=== PATIENT | male | born 1950 | race Caucasian/White ===

== ENCOUNTER 2018-08-23 20:20 | Inpatient (IN) | payer MEDICARE ==
[~2018-08-23] VITALS: Ht 180.3 cm; Wt 88.6 kg
--- NOTE | ~2018-08-23 | MORECARE ---
CASE MANAGEMENT DISCHARGE SUMMARY PATIENT: TERESO VILLARREAL UNIT: [id number] ADM DATE: 08/23/18 AGE: 68 : 50 SEX: M ROOM/BED: D.2112 AUTHOR: MERCEDEZ,DOC PHYSICIAN: REFERRING PHYSICIAN: VOLODYMYR CESPEDES MD DATE OF SERVICE: 08/26/18 Discharge Plan Patient Name: TERESO VILLARREAL Facility: [facility]:[place] : 1950 Planned Disposition: Home or Self Care Anticipated Discharge Date: 08/28/18 Discharge Date: Expected LOS: 5 Initial Reviewer: [email or web address] Initial Review Date: 08/26/2018 Generated: 08/26/18 9:45 am Comments DCP- Discharge Planning Updated by [email or web address]: Ekta Mooney on 08/26/18 7:[address] Patient Name: TERESO VILLARREAL Admission Status: ER Accout number: [id number] Admission Date: 08-23-2018 : 1950 Admission Diagnosis:SHORTNESS OF BREATH Attending: VOLODYMYR CESPEDES Current LOS: 3 Anticipated DC Date: 08-28-2018 Planned Disposition: Home or Self Care Primary Insurance: MEDICARE A & B Discharge Planning Comments: CM MET WITH PATIENT REGARDING D/C NEEDS AND PLANS. PATIENT STATED HE LIVES ALONE AND HIS DAUGHTER (EKTA STEVE) WILL DRIVE HIM HOME AT DISCHARGE. PATIENT STATED HE HAS ONE STEP TO ENTER HOME AND NO STAIRS INSIDE. PATIENT STATED HE IS INDEPENDENT WITH HIS CARE BUT HIS DAUGHTER HELPS HIM WITH HIS MEDICATION. PATIENT HAS A WALKER, BUILT IN SHOWER CHAIR, AND GLUCOMETER AT HOME. PATIENTS PCP IS DR. GUALLPA AND USES [facility] ON [facility]. PATIENT REFUSED HOME HEALTH AT THIS TIME. [facility] WAS SERVED TO PATIENT. CM WILL CONTINUE TO FOLLOW PATIENT WITH D/C NEEDS AND PLANS. [facility]CP [facility] EKTA STEVE (DAUGHTER) [phone] Plasma Processing Centrifuge Operator: Ekta Mooney DCPIA - Discharge Planning Initial Assessment Updated by [email or web address]: Ekta Mooney on 08/26/18 8:33 am * Is the patient Alert and Oriented? Yes * How many steps to enter\exit or inside your home? * PCP DR. GUALLPA * Pharmacy [facility] [address] * Preadmission Environment Home Alone * ADLs Partial Dependent * Partial ADLs (Assistance needed) Medication Management * Equipment Glucometer Other Walker * Other Equipment BUILT IN SOWER CHAIR * List name and contact numbers for known caregivers / representatives who currently or will assist patient after discharge: EKTA STEVE (DAUGHTER) [phone] * Verbal permission to speak to the caregivers and representatives has been obtained from the patient. Yes * Community resources currently utilized None * Additional services required to return to the preadmission environment? Yes * Can the patient safely return to the preadmission environment? Yes * Has this patient been hospitalized within the prior 30 days at any hospital? Yes Coverage Notice Reviewer: [id number] - Ektakit Mooney Notice Issued Date-Time: 08/26/2018 8:14 Notice Type: IM Discharge Notice Notice Delivered To: Patient Relationship to Patient: Rail Car Painter/Sandblaster Name: Delivery Method: HAND - Hand Delivered Pilar Days: Prior Verbal Notification: Recipient Understood Notice: Yes Recipient Signature: Yes Med Rec Note Co-signed by Attending: Coverage Notice Comment: Last DP export: 08/26/18 7:38 a Patient Name: TERESO VILLARREAL Page 62010 at 0846 All edits/amendments must be made on the electronic document DICTATION DATE: 08/26/18844 CHILD CARE SUPERVISOR: ROB 08/26/18844 RPT#: [id number] DC DATE: STATUS: ADM IN [facility] [address] [place] [address] END OF REPORT
--- NOTE | ~2018-08-23 | EC ---
PATIENT:TERESO VILLARREAL DATE OF SERVICE: 08/23/18 SEX: M MEDICAL RECORD: [id number] DATE OF : 50 LOCATION:D.M2 D.211 AGE OF PATIENT: 68 ADMISSION DATE: 08/23/18 REFERRING PHYSICIAN: INTERPRETING PHYSICIAN: KAITLIN WILLIAMSON MD ECHOCARDIOGRAM REPORT ECHO CHARGES Date: CLINICAL DIAGNOSIS: ECHOCARDIOGRAPHIC MEASUREMENTS (adult normal given) AC root (d.<3.7cm) cm LV Septum d (<1.2 cm> cm Valve Excursion cm LV Septum (systole) cm Left Atria (s.<4.0cm> cm LVPW d(<1.2cm) cm RV (d.<2.3cm) cm LVPW (sytole) cm LV diastole(<5.6CM) cm MV E-F(>70mm/sec) cm LV systole cm LVOT Diameter cm MV exc.(>10mm) cm Est.ejection fraction (50-75%) % DOPPLER: LVIT cm/sec A cm/sec E cm/sec LA cm/sec RVSP mmHg LVOT cm/sec AOP1/2T m/s Asc. Ao cm/sec RVOT cm/sec RA cm/sec PA cm/sec AV Gradient Peak mmHg AV Mean mmHg AV Area cm MV Gradient Peak mmHg MV Mean mmHg MV Area cm COMMENTS: Systems Development Consultant: Hospital Admissions Clerk: MAY# Pericardial Effusion DATE OF SERVICE: 08/24/2018 PROCEDURE: Echocardiogram. FINDINGS: 1. Left ventricular chamber size is dilated. Left ventricular systolic function is moderately reduced, overall ejection fraction 30%. 2. Left atrium is upper limits of normal at 4.0 cm. Right atrium and right ventricular chamber sizes are ztap-tg-bpnzaqyjqp dilated. 3. Valvular structures have normal structure and motion. ECHOCARDIOGRAM REPORT [id number] TERESO VILLARREAL 4. Doppler interrogation reveals mild mitral regurgitation, moderate tricuspid regurgitation, no other valvular insufficiency or stenosis. Pulmonary systolic pressure is estimated 48 mmHg. 5. No evidence of pericardial effusion or left ventricular thrombus. TRANSINT:[id number] Voice Confirmation ID: [id number] DOCUMENT ID: [id number] KAITLIN WILLIAMSON MD at 1059 CC: [id number] DICTATION DATE: 08/24/18 1231 APARTMENT MANAGER: 08/24/18 1235 DIS IN 08/30/18 [facility] [address] [place] [address]
--- NOTE | ~2018-08-23 | MORECARE ---
CASE MANAGEMENT DISCHARGE SUMMARY PATIENT: TERESO VILLARREAL UNIT: [id number] ADM DATE: 08/23/18 AGE: 68 : 50 SEX: M ROOM/BED: D.2112 AUTHOR: CELESTINO NEWSOME PHYSICIAN: REFERRING PHYSICIAN: VOLODYMYR CESPEDES MD DATE OF SERVICE: 08/26/18 Discharge Plan Patient Name: TERESO VILLARREAL Facility: [facility]:[place] : 1950 Planned Disposition: Home or Self Care Anticipated Discharge Date: 08/28/18 Discharge Date: Expected LOS: 5 Initial Reviewer: [email or web address] Initial Review Date: 08/26/2018 Generated: 08/26/18 9:32 am Patient Name: TERESO VILLARREAL Page 86284 at 0832 All edits/amendments must be made on the electronic document DICTATION DATE: 08/26/18830 BEAUTY CULTURIST: ROB 08/26/18830 RPT#: [id number] DC DATE: STATUS: ADM IN [facility] [address] [place] [address] END OF REPORT
--- NOTE | ~2018-08-23 | MORECARE ---
CASE MANAGEMENT DISCHARGE SUMMARY PATIENT: TERESO VILLARREAL UNIT: [id number] ADM DATE: 08/23/18 AGE: 68 : 50 SEX: M ROOM/BED: D.2112 AUTHOR: CELESTINO NEWSOME PHYSICIAN: REFERRING PHYSICIAN: VOLODYMYR CESPEDES MD DATE OF SERVICE: 08/30/18 Discharge Plan Patient Name: TERESO VILLARREAL Facility: [facility]:[place] : 1950 Planned Disposition: Home or Self Care Anticipated Discharge Date: 08/30/18 Discharge Date: Expected LOS: 7 Initial Reviewer: [email or web address] Initial Review Date: 08/26/2018 Generated: 08/30/18 12:25 pm Comments DCP- Discharge Planning Updated by [email or web address]: Leo Mayo on 08/30/18 10:[address] Patient Name: TERESO VILLARREAL Encounter No: [id number] : 1950 Primary Insurance: MEDICARE A & B Anticipated DC Date: 08-30-2018 Planned Disposition: Home or Self Care DCP follow-up note: CM MET WITH PT IN ROOM TO DISCUSS DISCHARGE NEEDS AND PLANNING. CM DISCUSSED AVAILABILITY OF HOME HEALTH, REHAB SERVICES AND MEDICAL EQUIPMENT. PT DENIES DISCHARGE NEEDS, DENIES NEED OF HOME HEALTH. DAUGHTER TO TRANSPORT HOME AT DISCHARGE TODAY. IMPORTANT MESSAGE FROM MEDICARE PROVIDED AND EXPLAINED. ALEIDA Norris DCP- Discharge Planning Updated by [id number]: Ekta Mooney on 08/26/18 7:[address] Patient Name: TERESO VILLARREAL Admission Status: ER Accout number: [id number] Admission Date: 08-23-2018 : 1950 Admission Diagnosis:SHORTNESS OF BREATH Attending: VOLODYMYR CESPEDES Current LOS: 3 Anticipated DC Date: 08-28-2018 Planned Disposition: Home or Self Care Primary Insurance: MEDICARE A & B Discharge Planning Comments: CM MET WITH PATIENT REGARDING D/C NEEDS AND PLANS. PATIENT STATED HE LIVES ALONE AND HIS DAUGHTER (EKTA STEVE) WILL DRIVE HIM HOME AT DISCHARGE. PATIENT STATED HE HAS ONE STEP TO ENTER HOME AND NO STAIRS INSIDE. PATIENT STATED HE IS INDEPENDENT WITH HIS CARE BUT HIS DAUGHTER HELPS HIM WITH HIS MEDICATION. PATIENT HAS A WALKER, BUILT IN SHOWER CHAIR, AND GLUCOMETER AT HOME. PATIENTS PCP IS DR. GUALLPA AND USES [facility] ON [facility]. PATIENT REFUSED HOME HEALTH AT THIS TIME. [facility] WAS SERVED TO PATIENT. CM WILL CONTINUE TO FOLLOW PATIENT WITH D/C NEEDS AND PLANS. PCP [facility] EKTA STEVE (DAUGHTER) [phone] Telescope Repairer: Ekta Mooney DCPIA - Discharge Planning Initial Assessment Updated by [email or web address]: Ekta Mooney on 08/26/18 8:33 am * Is the patient Alert and Oriented? Yes * How many steps to enter\exit or inside your home? * PCP DR. GUALLPA * Pharmacy [facility] * Preadmission Environment Home Alone * ADLs Partial Dependent * Partial ADLs (Assistance needed) Medication Management * Equipment Glucometer Other Walker * Other Equipment BUILT IN SOWER CHAIR * List name and contact numbers for known caregivers / representatives who currently or will assist patient after discharge: EKTA STEVE (DAUGHTER) [phone] * Verbal permission to speak to the caregivers and representatives has been obtained from the patient. Yes * Community resources currently utilized None * Additional services required to return to the preadmission environment? Yes * Can the patient safely return to the preadmission environment? Yes * Has this patient been hospitalized within the prior 30 days at any hospital? Yes Coverage Notice Reviewer: [id number] - Ekta Mooney Notice Issued Date-Time: 08/26/2018 8:14 Notice Type: IM Discharge Notice Notice Delivered To: Patient Relationship to Patient: Digital Content Marketing Manager Name: Delivery Method: HAND - Hand Delivered Pilar Days: Prior Verbal Notification: Recipient Understood Notice: Yes Recipient Signature: Yes Med Rec Note Co-signed by Attending: Coverage Notice Comment: Reviewer: [id number] - Leo Mayo Notice Issued Date-Time: 08/30/2018 11:15 Notice Type: IM Discharge Notice Notice Delivered To: Patient Relationship to Patient: Digital Content Marketing Manager Name: Delivery Method: HAND - Hand Delivered Pilar Days: Prior Verbal Notification: Recipient Understood Notice: Yes Recipient Signature: Yes Med Rec Note Co-signed by Attending: Coverage Notice Comment: Last DP export: 08/26/18 7:45 a Patient Name: TERESO VILLARREAL Page 46209 at 1125 All edits/amendments must be made on the electronic document DICTATION DATE: 08/30/181123 COMMUNITY RELATIONS DIRECTOR: ROB 08/30/181123 RPT#: [id number] DC DATE: STATUS: ADM IN [facility] [address] [place] [address] END OF REPORT
--- NOTE | ~2018-08-23 | MORECARE ---
CASE MANAGEMENT DISCHARGE SUMMARY PATIENT: TERESO VILLARREAL UNIT: [id number] ADM DATE: 08/23/18 AGE: 68 : 50 SEX: M ROOM/BED: D.2112 AUTHOR: CELESTINO NEWSOME PHYSICIAN: REFERRING PHYSICIAN: VOLODYMYR CESPEDES MD DATE OF SERVICE: 08/26/18 Discharge Plan Patient Name: TERESO VILLARREAL Facility: [facility]:[place] : 1950 Planned Disposition: Home or Self Care Anticipated Discharge Date: 08/28/18 Discharge Date: Expected LOS: 5 Initial Reviewer: [email or web address] Initial Review Date: 08/26/2018 Generated: 08/26/18 9:38 am DCPIA - Discharge Planning Initial Assessment Updated by [email or web address]: Ekta Mooney on 08/26/18 8:33 am * Is the patient Alert and Oriented? Yes * How many steps to enter\exit or inside your home? * PCP DR. GUALLPA * Pharmacy [facility] * Preadmission Environment Home Alone * ADLs Partial Dependent * Partial ADLs (Assistance needed) Medication Management * Equipment Glucometer Other Walker * Other Equipment BUILT IN SOWER CHAIR * List name and contact numbers for known caregivers / representatives who currently or will assist patient after discharge: EKTA STEVE (DAUGHTER) [phone] * Verbal permission to speak to the caregivers and representatives has been obtained from the patient. Yes * Community resources currently utilized None * Additional services required to return to the preadmission environment? Yes * Can the patient safely return to the preadmission environment? Yes * Has this patient been hospitalized within the prior 30 days at any hospital? Yes Last DP export: 08/26/18 7:32 a Patient Name: TERESO VILLARREAL Page 68260 at 0838 All edits/amendments must be made on the electronic document DICTATION DATE: 08/26/18837 OILSEED MEAT PRESSER: ROB 08/26/18837 RPT#: [id number] DC DATE: STATUS: ADM IN [facility] [address] [place] [address] END OF REPORT
[2018-08-23] MEDS ORDERED: COREG6.25 MG PO (20:33)
[2018-08-23] MEDS ORDERED: NEURONTIN 300300 MG POINH (20:33)
[2018-08-23] MEDS ORDERED: ATIVAN1 MG PO (20:33)
[2018-08-23] MEDS ORDERED: GLIMEPIRIDE1 MG PO (20:34)
[2018-08-23] MEDS ORDERED: ASPIRIN81 MG PO (20:34)
[2018-08-23 21:02] LABS: BASOPHILS 0.2 % (0-2); EOSINOPHILS 1.2 % (0-7); HEMATOCRIT 33.6 % (42.0-54.0); IMMATURE GRANULOCYTES 0.1 % (0-5); MCHC 29.8 g/dL (31.0-37.0); MCV 70.6 fL (80.0-100.0); MEAN PLATELET VOLUME 8.5 fL (7.4-10.4); MONOCYTES 7.2 % (2-11); NEUTROPHILS 80.3 % (40-80); PLATELET COUNT 274 10x3/uL (130-400); RBC 4.76 10x6/uL (4.20-6.10); RDW 18.8 % (11.5-14.5); WBC 8.1 10x3/uL (4.8-10.8)
[2018-08-23 21:11] LABS: INR 1.41 (0.85-1.17); PROTIME 16.8 SECONDS (11.6-15.0)
[2018-08-23 21:12] LABS: APTT 34.9 SECONDS (22.8-39.4)
[2018-08-23 21:21] LABS: ALBUMIN 2.8 g/dL (3.4-5.0); ALKALINE PHOSPHATASE 235 U/L (46-116); ALT (SGPT) 19 U/L (10-68); BILIRUBIN - TOTAL 0.66 mg/dL (0.2-1.3); CALC OSMOLALITY 284 mosm/kg (275-300); CALCIUM 8.7 mg/dL (8.5-10.1); CARBON DIOXIDE 28.5 mmol/L (21.0-32.0); CHLORIDE - SERUM 101 mmol/L (98-107); CREATININE - SERUM 1.1 mg/dL (0.6-1.3); GLUCOSE 196 mg/dL (74-106); POTASSIUM - SERUM 3.4 mmol/L (3.5-5.1); PROTEIN - SERUM 7.9 g/dL (6.4-8.2); SODIUM 140 mmol/L (136-145); UREA NITROGEN 15 mg/dL (7-18); eGFR NON AFRICAN AMERICAN 71 mL/min (90-120)
[2018-08-23 21:32] LABS: CKMB 1.1 U/L (0.0-3.6); CREATINE KINASE 60 UL (21-232); PRO BNP 18249 pg/mL (0-125)
[2018-08-23 21:33] LABS: TROPONIN-I < 0.017 ng/mL (0.000-0.060)
[2018-08-23 21:40] VITALS: BP 149/93
[2018-08-24 00:37] VITALS: BP 153/97
[2018-08-24 00:48] VITALS: BP 153/97
[2018-08-24 05:36] VITALS: BP 152/92
[2018-08-24 06:18] LABS: BASOPHILS 0.3 % (0-2); EOSINOPHILS 1.1 % (0-7); HEMATOCRIT 31.3 % (42.0-54.0); HEMOGLOBIN 9.4 g/dL (13.5-17.5); IMMATURE GRANULOCYTES 0.1 % (0-5); LYMPHOCYTES 13.6 % (15-50); MCH 20.9 pg (26.0-34.0); MCV 69.7 fL (80.0-100.0); MEAN PLATELET VOLUME 8.9 fL (7.4-10.4); NEUTROPHILS 76.9 % (40-80); PLATELET COUNT 284 10x3/uL (130-400); RBC 4.49 10x6/uL (4.20-6.10); RDW 18.9 % (11.5-14.5)
[2018-08-24 06:25] LABS: CALC OSMOLALITY 281 mosm/kg (275-300); CALCIUM 8.7 mg/dL (8.5-10.1); CARBON DIOXIDE 28.9 mmol/L (21.0-32.0); CHLORIDE - SERUM 101 mmol/L (98-107); GLUCOSE 154 mg/dL (74-106); POTASSIUM - SERUM 3.6 mmol/L (3.5-5.1); SODIUM 139 mmol/L (136-145); UREA NITROGEN 14 mg/dL (7-18); eGFR NON AFRICAN AMERICAN 79 mL/min (90-120)
[2018-08-24 07:35] VITALS: BP 143/97
[2018-08-24 12:31] VITALS: BMI 27.2
[2018-08-24] MEDS ORDERED: BUMEX2 MG PO (15:12)
[2018-08-24 15:49] VITALS: BP 142/95
[2018-08-24 21:36] VITALS: BP 156/51
[2018-08-25 01:42] VITALS: BP 169/100
[2018-08-25 05:11] LABS: BASOPHILS 0.2 % (0-2); EOSINOPHILS 1.4 % (0-7); HEMATOCRIT 27.6 % (42.0-54.0); HEMOGLOBIN 8.2 g/dL (13.5-17.5); IMMATURE GRANULOCYTES 0.2 % (0-5); LYMPHOCYTES 17.3 % (15-50); MCH 20.6 pg (26.0-34.0); MCHC 29.7 g/dL (31.0-37.0); MCV 69.3 fL (80.0-100.0); MEAN PLATELET VOLUME 8.6 fL (7.4-10.4); MONOCYTES 11.8 % (2-11); NEUTROPHILS 69.1 % (40-80); PLATELET COUNT 248 10x3/uL (130-400); RBC 3.98 10x6/uL (4.20-6.10); RDW 18.4 % (11.5-14.5); WBC 6.5 10x3/uL (4.8-10.8)
[2018-08-25 05:30] LABS: ALBUMIN 2.4 g/dL (3.4-5.0); ALKALINE PHOSPHATASE 183 U/L (46-116); ALT (SGPT) 12 U/L (10-68); CALC OSMOLALITY 286 mosm/kg (275-300); CALCIUM 8.6 mg/dL (8.5-10.1); CHLORIDE - SERUM 105 mmol/L (98-107); GLUCOSE 107 mg/dL (74-106); MAGNESIUM - SERUM 1.8 mg/dL (1.8-2.4); PHOSPHOROUS 3.4 mg/dL (2.5-4.9); POTASSIUM - SERUM 3.1 mmol/L (3.5-5.1); PROTEIN - SERUM 6.6 g/dL (6.4-8.2); SODIUM 143 mmol/L (136-145); UREA NITROGEN 19 mg/dL (7-18); eGFR NON AFRICAN AMERICAN 79 mL/min (90-120)
[2018-08-25 06:34] VITALS: BP 149/75
[2018-08-25 07:53] VITALS: BP 142/82
[2018-08-25 10:58] VITALS: BP 112/60
[2018-08-25 16:03] VITALS: BP 127/74
[2018-08-25 19:36] VITALS: Ht 180.3 cm; Wt 88.6 kg
[2018-08-25 20:12] LABS: % SATURATION 4 % (15-55); IRON 15 ug/dl (35-150); TOTAL IRON BIND CAPACITY 314 ug/dl (260-445); UNSAT IRON BIND CAPACITY 299 ug/dl (150-375)
[2018-08-25 20:25] LABS: THYROID STIMULATING HORMONE 2.07 uIU/mL (0.36-3.74)
[2018-08-25 20:37] VITALS: BP 117/72
[2018-08-26 01:17] VITALS: BP 120/76
[2018-08-26 04:46] LABS: BASOPHILS 0.3 % (0-2); EOSINOPHILS 1.6 % (0-7); HEMATOCRIT 27.7 % (42.0-54.0); HEMOGLOBIN 8.2 g/dL (13.5-17.5); IMMATURE GRANULOCYTES 0.1 % (0-5); LYMPHOCYTES 17.6 % (15-50); MCH 20.8 pg (26.0-34.0); MCHC 29.6 g/dL (31.0-37.0); MCV 70.1 fL (80.0-100.0); MEAN PLATELET VOLUME 8.6 fL (7.4-10.4); MONOCYTES 11.6 % (2-11); NEUTROPHILS 68.8 % (40-80); PLATELET COUNT 244 10x3/uL (130-400); RBC 3.95 10x6/uL (4.20-6.10); RDW 18.6 % (11.5-14.5); WBC 6.8 10x3/uL (4.8-10.8)
[2018-08-26 05:08] LABS: ALBUMIN 2.4 g/dL (3.4-5.0); ANION GAP 11.3 mmol/L (8-16); BILIRUBIN - TOTAL 0.36 mg/dL (0.2-1.3); CALCIUM 8.4 mg/dL (8.5-10.1); CARBON DIOXIDE 29.5 mmol/L (21.0-32.0); CREATININE - SERUM 1.2 mg/dL (0.6-1.3); MAGNESIUM - SERUM 1.7 mg/dL (1.8-2.4); PHOSPHOROUS 3.7 mg/dL (2.5-4.9); POTASSIUM - SERUM 3.8 mmol/L (3.5-5.1); PROTEIN - SERUM 6.7 g/dL (6.4-8.2)
[2018-08-26 06:21] VITALS: BP 121/71
[2018-08-26 07:59] VITALS: BP 142/84
[2018-08-26 12:06] VITALS: BP 137/72
[2018-08-26 15:58] VITALS: BP 146/88
[2018-08-26 20:23] VITALS: BP 113/63
[2018-08-27 01:46] VITALS: BP 110/65
[2018-08-27 05:58] LABS: BASOPHILS 0.6 % (0-2); EOSINOPHILS 1.5 % (0-7); HEMATOCRIT 27.8 % (42.0-54.0); HEMOGLOBIN 8.2 g/dL (13.5-17.5); IMMATURE GRANULOCYTES 0.2 % (0-5); LYMPHOCYTES 15.8 % (15-50); MCH 20.8 pg (26.0-34.0); MCHC 29.5 g/dL (31.0-37.0); MCV 70.6 fL (80.0-100.0); MEAN PLATELET VOLUME 8.9 fL (7.4-10.4); MONOCYTES 12.6 % (2-11); NEUTROPHILS 69.3 % (40-80); PLATELET COUNT 265 10x3/uL (130-400); RBC 3.94 10x6/uL (4.20-6.10); RDW 18.6 % (11.5-14.5); WBC 5.4 10x3/uL (4.8-10.8)
[2018-08-27 06:21] LABS: ALBUMIN 2.4 g/dL (3.4-5.0); ANION GAP 10.3 mmol/L (8-16); BILIRUBIN - TOTAL 0.45 mg/dL (0.2-1.3); CALCIUM 8.4 mg/dL (8.5-10.1); CARBON DIOXIDE 31.4 mmol/L (21.0-32.0); CREATININE - SERUM 1.1 mg/dL (0.6-1.3); MAGNESIUM - SERUM 1.6 mg/dL (1.8-2.4); PHOSPHOROUS 3.7 mg/dL (2.5-4.9); POTASSIUM - SERUM 3.7 mmol/L (3.5-5.1); PROTEIN - SERUM 6.8 g/dL (6.4-8.2)
[2018-08-27 06:45] VITALS: BP 161/60
[2018-08-27 08:42] VITALS: BP 140/77
[2018-08-27 12:21] VITALS: BP 128/76
[2018-08-27 16:54] VITALS: BP 124/72
[2018-08-27 21:01] VITALS: BP 128/74
[2018-08-28] VITALS (7 sets, daily range): BP systolic 92–157; BP diastolic 48–71
[2018-08-28 06:01] LABS: BASOPHILS 0.3 % (0-2); EOSINOPHILS 0.9 % (0-7); HEMOGLOBIN 7.9 g/dL (13.5-17.5); IMMATURE GRANULOCYTES 0.2 % (0-5); LYMPHOCYTES 12.9 % (15-50); MCH 20.6 pg (26.0-34.0); MCHC 29.3 g/dL (31.0-37.0); MCV 70.3 fL (80.0-100.0); MEAN PLATELET VOLUME 8.5 fL (7.4-10.4); MONOCYTES 11.1 % (2-11); NEUTROPHILS 74.6 % (40-80); PLATELET COUNT 260 10x3/uL (130-400); RBC 3.84 10x6/uL (4.20-6.10); RDW 18.9 % (11.5-14.5); WBC 6.4 10x3/uL (4.8-10.8)
[2018-08-28 06:18] LABS: ALBUMIN 2.3 g/dL (3.4-5.0); ANION GAP 9.7 mmol/L (8-16); BILIRUBIN - TOTAL 0.34 mg/dL (0.2-1.3); CALCIUM 8.4 mg/dL (8.5-10.1); CARBON DIOXIDE 30.9 mmol/L (21.0-32.0); CREATININE - SERUM 1.3 mg/dL (0.6-1.3); POTASSIUM - SERUM 3.6 mmol/L (3.5-5.1); PROTEIN - SERUM 6.8 g/dL (6.4-8.2)
[2018-08-28 06:22] LABS: MAGNESIUM - SERUM 2.1 mg/dL (1.8-2.4)
[2018-08-29 04:00] VITALS: BP 110/66
[2018-08-29 06:19] LABS: BASOPHILS 0.5 % (0-2); EOSINOPHILS 1.4 % (0-7); MCH 22.6 pg (26.0-34.0); MCHC 31.1 g/dL (31.0-37.0); MONOCYTES 13.5 % (2-11); NEUTROPHILS 67.6 % (40-80); PLATELET COUNT 307 10x3/uL (130-400); RDW 19.3 % (11.5-14.5); WBC 6.4 10x3/uL (4.8-10.8)
[2018-08-29 06:21] LABS: HEMATOCRIT 34.4 % (42.0-54.0); HEMOGLOBIN 10.7 g/dL (13.5-17.5); MCV 72.6 fL (80.0-100.0); RBC 4.74 10x6/uL (4.20-6.10)
[2018-08-29 06:37] LABS: ALBUMIN 2.4 g/dL (3.4-5.0); ANION GAP 11.5 mmol/L (8-16); BILIRUBIN - TOTAL 0.97 mg/dL (0.2-1.3); CALCIUM 8.6 mg/dL (8.5-10.1); CARBON DIOXIDE 29.2 mmol/L (21.0-32.0); CREATININE - SERUM 1.2 mg/dL (0.6-1.3); PHOSPHOROUS 3.8 mg/dL (2.5-4.9); POTASSIUM - SERUM 3.7 mmol/L (3.5-5.1); PROTEIN - SERUM 7.1 g/dL (6.4-8.2)
[2018-08-29 08:27] VITALS: BP 149/82
[2018-08-29 11:00] VITALS: BP 142/72
[2018-08-29 18:38] VITALS: BP 175/65
[2018-08-29 20:00] VITALS: BP 135/80
[2018-08-30 00:53] VITALS: BP 124/76
[2018-08-30 04:00] VITALS: BP 138/93
[2018-08-30 08:58] VITALS: BP 148/86
[2018-08-30] MEDS ORDERED: LISINOPRIL5 MG PO (12:32)
== END 2018-08-30 14:32 | disposition home or self-care (01) | DRG 292 ==
LOC: D.ER 20:20 → D.EDHOLD 22:09 → D.M2 22:09
PROVIDERS: Family Medicine; Internal Medicine Hematology & Oncology
DX: I11.0 Hypertensive heart disease with heart failure (principal); N17.9 Acute kidney failure, unspecified; E11.65 Type 2 diabetes mellitus with hyperglycemia; E11.40 Type 2 diabetes mellitus with diabetic neuropathy, unspecified; I25.10 Atherosclerotic heart disease of native coronary artery without angina pectoris; I50.23 Acute on chronic systolic (congestive) heart failure; D50.9 Iron deficiency anemia, unspecified; E83.42 Hypomagnesemia; Z95.5 Presence of coronary angioplasty implant and graft

== ENCOUNTER 2018-09-27 17:31 | Inpatient (IN) | payer MEDICARE ==
[~2018-09-27] VITALS: Ht 180.3 cm; Wt 66.8 kg
--- NOTE | ~2018-09-27 | MORECARE ---
CASE MANAGEMENT DISCHARGE SUMMARY PATIENT: TERESO VILLARREAL UNIT: [id number] ADM DATE: 09/27/18 AGE: 68 : 50 SEX: M [facility] AUTHOR: MERCEDEZ,DOC PHYSICIAN: REFERRING PHYSICIAN: FREEDOM CONTRERAS MD DATE OF SERVICE: 10/03/18 Discharge Plan Patient Name: TERESO VILLARREAL Facility: [facility]:[place] : 1950 Planned Disposition: Home or Self Care Anticipated Discharge Date: Discharge Date: Expected LOS: Initial Reviewer: [email or web address] Initial Review Date: 10/02/2018 Generated: 10/03/18 4:56 pm Comments DCP- Discharge Planning Updated by [email or web address]: Terrie Oreilly on 10/03/18 2:[address] LATE ENTRY 10-02-18 @ 1230 Patient Name: TERESO VILLARREAL Admission Status: ER Accout number: [id number] Admission Date: 09-27-2018 : 1950 Admission Diagnosis:UNSPECIFIED ABDOMINAL PAIN Attending: FREEDOM CONTRERAS Current LOS: 6 Anticipated DC Date: Planned Disposition: Home or Self Care Primary Insurance: MEDICARE A & B Discharge Planning Comments: CM met with patient at bedside. Patient plans to return to his home. Patient states that he lives alone but daughter lives just down street. Patient denies any discharge needs at this time. CM will continue to follow and assist with discharge planning / needs. Machine Bunch Maker: Terrie Oreilly DCPIA - Discharge Planning Initial Assessment Updated by [email or web address]: Terrie Oreilly on 10/03/18 3:51 pm * Is the patient Alert and Oriented? Yes * How many steps to enter\exit or inside your home? * PCP Lerma * Pharmacy [place] [facility] * Preadmission Environment Home Alone * ADLs Independent * Equipment Walker * List name and contact numbers for known caregivers / representatives who currently or will assist patient after discharge: iCra rao- [phone] * Verbal permission to speak to the caregivers and representatives has been obtained from the patient. Yes * Community resources currently utilized None * Additional services required to return to the preadmission environment? No * Can the patient safely return to the preadmission environment? Yes * Has this patient been hospitalized within the prior 30 days at any hospital? Yes Patient Name: TERESO VILLARREAL Page 67620 at 1556 All edits/amendments must be made on the electronic document DICTATION DATE: 10/03/181555 DRIVE THRU ORDER TAKER: ROB 10/03/181555 RPT#: [id number] [place] DATE: STATUS: ADM IN [facility] [address] [place] [address] END OF REPORT
--- NOTE | ~2018-09-27 | MORECARE ---
CASE MANAGEMENT DISCHARGE SUMMARY PATIENT: TERESO VILLARREAL UNIT: [id number] ADM DATE: 09/27/18 AGE: 68 : 50 SEX: M [facility] AUTHOR: MERCEDEZDOC PHYSICIAN: REFERRING PHYSICIAN: FREEDOM CONTRERAS MD DATE OF SERVICE: 10/09/18 Discharge Plan Patient Name: TERESO VILLARREAL Facility: [facility]:[place] : 1950 Planned Disposition: Home or Self Care Anticipated Discharge Date: Discharge Date: 10/09/2018 Expected LOS: Initial Reviewer: [email or web address] Initial Review Date: 10/02/2018 Generated: 10/09/18 3:23 pm Comments DCP- Discharge Planning Updated by [email or web address]: Terrie Oreilly on 10/08/18 1:[address] Patient Name: TERESO VILLARREAL Encounter No: [id number] : 1950 Primary Insurance: MEDICARE A & B Anticipated DC Date: Planned Disposition: Home or Self Care External Planned Provider: : IMM EXPLAINED AND SERVED 10/08/18 @ 1237. PATIENT STATES HE WOULD LIKE TO WAIT FOR D/C UNTIL THE AM. HIS DAUGHTER CAN'T PICK HIM UP UNTIL LATE TONIGHT. DCP follow-up note: Patient and family in agreement with discharge plan. No changes to plan. Case management will follow and assist as needed. Terrie Oreilly DCP- Discharge Planning Updated by [email or web address]: Terrie Oreilly on 10/03/18 2:[address] LATE ENTRY 10-02-18 @ 1230 Patient Name: TERESO VILLARREAL Admission Status: ER Accout number: [id number] Admission Date: 09-27-2018 : 1950 Admission Diagnosis:UNSPECIFIED ABDOMINAL PAIN Attending: FREEDOM CONTRERAS Current LOS: 6 Anticipated DC Date: Planned Disposition: Home or Self Care Primary Insurance: MEDICARE A & B Discharge Planning Comments: CM met with patient at bedside. Patient plans to return to his home. Patient states that he lives alone but daughter lives just down street. Patient denies any discharge needs at this time. CM will continue to follow and assist with discharge planning / needs. Forestry Worker: Terrie Oreilly DCPIA - Discharge Planning Initial Assessment Updated by [email or web address]: Terrie Oreilly on 10/03/18 3:51 pm * Is the patient Alert and Oriented? Yes * How many steps to enter\exit or inside your home? * PCP Florentin * Pharmacy [place] or [facility] [address] * Preadmission Environment Home Alone * ADLs Independent * Equipment Walker * List name and contact numbers for known caregivers / representatives who currently or will assist patient after discharge: Cira rao- [phone] * Verbal permission to speak to the caregivers and representatives has been obtained from the patient. Yes * Community resources currently utilized None * Additional services required to return to the preadmission environment? No * Can the patient safely return to the preadmission environment? Yes * Has this patient been hospitalized within the prior 30 days at any hospital? Yes Coverage Notice Reviewer: [id number] - Terrie Oreilly Notice Issued Date-Time: 10/08/2018 12:37 Notice Type: IM Discharge Notice Notice Delivered To: Patient Relationship to Patient: Self Site Manager Name: Delivery Method: HAND - Hand Delivered Pilar Days: Prior Verbal Notification: Recipient Understood Notice: Yes Recipient Signature: Yes Med Rec Note Co-signed by Attending: Coverage Notice Comment: Last DP export: 10/08/18 2:00 Patient Name: TERESO VILLARREAL Page 30335 at 1423 All edits/amendments must be made on the electronic document DICTATION DATE: 10/09/181422 BACTERIOLOGIST PHARMACEUTICAL: ROB 10/09/18 1423 RPT#: [id number] DC DATE:10/09/18 STATUS: DIS IN [facility] [address] [place] [address] END OF REPORT
--- NOTE | ~2018-09-27 | MORECARE ---
CASE MANAGEMENT DISCHARGE SUMMARY PATIENT: TERESO VILLARREAL UNIT: [id number] ADM DATE: 09/27/18 AGE: 68 : 50 SEX: M [facility] AUTHOR: MERCEDEZDOC PHYSICIAN: REFERRING PHYSICIAN: FREEDOM CONTRERAS MD DATE OF SERVICE: 10/08/18 Discharge Plan Patient Name: TERESO VILLARREAL Facility: [facility]:[place] : 1950 Planned Disposition: Home or Self Care Anticipated Discharge Date: Discharge Date: Expected LOS: Initial Reviewer: [email or web address] Initial Review Date: 10/02/2018 Generated: 10/08/18 4:00 pm Comments DCP- Discharge Planning Updated by [email or web address]: Terrie Oreilly on 10/08/18 1:[address] Patient Name: TERESO VILLARREAL Encounter No: [id number] : 1950 Primary Insurance: MEDICARE A & B Anticipated DC Date: Planned Disposition: Home or Self Care External Planned Provider: : IMM EXPLAINED AND SERVED 10/08/18 @ 1237. PATIENT STATES HE WOULD LIKE TO WAIT FOR D/C UNTIL THE AM. HIS DAUGHTER CAN'T PICK HIM UP UNTIL LATE TONIGHT. DCP follow-up note: Patient and family in agreement with discharge plan. No changes to plan. Case management will follow and assist as needed. Terrie Oreilly DCP- Discharge Planning Updated by [email or web address]: Terrie Oreilly on 10/03/18 2:[address] LATE ENTRY 10-02-18 @ 1230 Patient Name: TERESO VILLARREAL Admission Status: ER Accout number: [id number] Admission Date: 09-27-2018 : 1950 Admission Diagnosis:UNSPECIFIED ABDOMINAL PAIN Attending: FREEDOM CONTRERAS Current LOS: 6 Anticipated DC Date: Planned Disposition: Home or Self Care Primary Insurance: MEDICARE A & B Discharge Planning Comments: CM met with patient at bedside. Patient plans to return to his home. Patient states that he lives alone but daughter lives just down street. Patient denies any discharge needs at this time. CM will continue to follow and assist with discharge planning / needs. Pot Fluxer: Terrie Oreilly DCPIA - Discharge Planning Initial Assessment Updated by [email or web address]: Terrie Oreilly on 10/03/18 3:51 pm * Is the patient Alert and Oriented? Yes * How many steps to enter\exit or inside your home? * PCP Florentin * Pharmacy [place] or [facility] [address] * Preadmission Environment Home Alone * ADLs Independent * Equipment Walker * List name and contact numbers for known caregivers / representatives who currently or will assist patient after discharge: Cira rao- [phone] * Verbal permission to speak to the caregivers and representatives has been obtained from the patient. Yes * Community resources currently utilized None * Additional services required to return to the preadmission environment? No * Can the patient safely return to the preadmission environment? Yes * Has this patient been hospitalized within the prior 30 days at any hospital? Yes Coverage Notice Reviewer: [id number] - Terrie Oreilly Notice Issued Date-Time: 10/08/2018 12:37 Notice Type: IM Discharge Notice Notice Delivered To: Patient Relationship to Patient: Self Soccer Ball Assembler Name: Delivery Method: HAND - Hand Delivered Pilar Days: Prior Verbal Notification: Recipient Understood Notice: Yes Recipient Signature: Yes Med Rec Note Co-signed by Attending: Coverage Notice Comment: Last DP export: 10/03/18 2:56 Patient Name: TERESO VILLARREAL Page [phone] at 1500 All edits/amendments must be made on the electronic document DICTATION DATE: 10/08/18 1500 VP CUSTOMER SERVICE: ROB 10/08/18 1500 RPT#: [id number] DC DATE: STATUS: ADM IN [facility] [address] [place] [address] END OF REPORT
--- NOTE | ~2018-09-27 | EC ---
PATIENT:TERESO VILLARREAL DATE OF SERVICE: 09/27/18 SEX: M MEDICAL RECORD: [id number] DATE OF : 50 LOCATION:[place] [address] AGE OF PATIENT: 68 ADMISSION DATE: 09/27/18 REFERRING PHYSICIAN: INTERPRETING PHYSICIAN: KAITLIN HAYWARD MD ECHOCARDIOGRAM REPORT ECHO CHARGES 4 ECHO COMPLETE Date: 09/28/18 CLINICAL DIAGNOSIS: CHF HX OF CAD/STENTS ECHOCARDIOGRAPHIC MEASUREMENTS (adult normal given) AC root (d.<3.7cm) 3.8 cm LV Septum d (<1.2 cm> 1.6 cm Valve Excursion 1.9 cm LV Septum (systole) 1.7 cm Left Atria (s.<4.0cm> 3.8 cm LVPW d(<1.2cm) 1.9 cm RV (d.<2.3cm) 5.0 cm LVPW (sytole) 2.0 cm LV diastole(<5.6CM) 5.4 cm MV E-F(>70mm/sec) cm LV systole 4.6 cm LVOT Diameter 1.9 cm MV exc.(>10mm) 1.0 cm Est.ejection fraction (50-75%) % DOPPLER: LVIT cm/sec A 28.0 cm/sec E 111 cm/sec LA cm/sec RVSP 52 mmHg LVOT 85 cm/sec AOP1/2T m/s Asc. Ao 119 cm/sec RVOT 67 cm/sec RA cm/sec PA 88 cm/sec AV Gradient Peak 5.65 mmHg AV Mean 3.33 mmHg AV Area 1.6 cm MV Gradient Peak 6.36 mmHg MV Mean 1.98 mmHg MV Area cm COMMENTS: Plastic Surgery Assistant: 2 CRYSTAL SORIA School Clerk: 1 Dr. Hayward TAPE# PACS Pericardial Effusion N DATE OF SERVICE: 09/28/2018 PROCEDURE: Echocardiogram. FINDINGS: 1. Left ventricular chamber size is within normal limits. Left ventricular systolic function is moderately reduced, overall ejection fraction in the 35% to 40% range. 2. Left atrium is within normal limits at 3.8 cm. Right atrium and right ventricular chamber sizes are gbmf-pp-jommnrhoes dilated. ECHOCARDIOGRAM REPORT [id number] TERESO VILLARREAL 3. Valvular structures have normal structure and motion. 4. Doppler interrogation reveals mild mitral regurgitation, mild tricuspid regurgitation, no other valvular insufficiency or stenosis. Pulmonary systolic pressure is elevated estimated 52 mmHg. 5. No evidence of pericardial effusion or left ventricular thrombus. TRANSINT:[id number] Voice Confirmation ID: [id number] DOCUMENT ID: [id number] KAITLIN HAYWARD MD at 1108 CC: [id number] DICTATION DATE: 09/28/18 1605 LOG COOKER: 09/29/18 0012 ADM IN [place] [id number] [place] [id number]
--- NOTE | ~2018-09-27 | OP ---
PATIENT NAME: TERESO VILLARREAL MEDICAL RECORD: [id number] :50 LOCATION:[place] D.CV08 ADMISSION DATE:09/27/18 SURGEON: DEMAR TORRES MD DATE OF OPERATION: 10/02/2018 SURGEON: Demar Torres MD ANESTHESIA: General endotracheal, Dr. Bazzi. OPERATION PERFORMED: Endovascular stent repair of abdominal aortic aneurysm. 1. Open femoral exposure, right lower extremity, 46489. 2. Percutaneous access and closure, left common femoral artery, 16443. 3. Catheter sheath placement into the aorta bilaterally, 74792-46. 4. Endovascular stent repair utilizing an aortobiiliac device, 58878. 5. Repair of blood vessel right lower extremity, 35941. PREOPERATIVE DIAGNOSIS: Saccular abdominal aortic aneurysm. POSTOPERATIVE DIAGNOSIS: Saccular abdominal aortic aneurysm. INDICATION FOR OPERATION: Penetrating atherosclerotic ulcer with a saccular aneurysm. FINDINGS OF THE OPERATION: 1. Aortogram pre demonstrates the saccular aneurysm just below the renal arteries and evaluation of the aneurysm for repair. 2. Post-aortogram demonstrates good placement of the device and extension with occlusion of the aneurysm sac. ESTIMATED BLOOD LOSS: Less than 150 mL. FLUOROSCOPY TIME: 13 minutes 51 seconds. CONTRAST: 80 mL. The main body was 22 diameter, 90 length and 30 limbs. The extension was 25 diameter x 75 in length. DESCRIPTION OF PROCEDURE: After informed consent and adequate preoperative medication evaluation, the patient was brought to the operating room, placed on the table in the supine position. After induction of general endotracheal anesthesia and application of appropriate monitoring devices, the chest, abdomen and legs were prepped and draped in sterile field, utilizing Betadine scrub, alcohol, and Betadine solution. Betadine-impregnated drape was also used. The left common femoral artery was accessed with a micropuncture technique followed by 7-Malagasy sheath. A cut down over the inguinal ligament was made on the right and dissection carried down to the fascia. Hemostasis maintained with electrocautery. The common femoral and distal iliac artery were dissected free of surrounding structures and encircled with a vessel loop. The patient was given a calculated dose of heparin. A 7-Malagasy sheath was placed on the right and a stiff wire was placed bilaterally utilizing an exchange technique after a Glidewire and catheter placement. The snare was placed in the contralateral side at the bifurcation, the main body and its access wire was placed into the snare and pulled through the contralateral side as it was advanced on the right. The main body was then advanced into the aorta and the device seated the OPERATIVE REPORT [id number] VILLARREAL,TERESO bifurcation. The main body was then deployed. A pigtail catheter was placed up the right and an arteriogram made after placement of the extension and the renal arteries were delineated. The extension was then deployed with a suprarenal fixation at the renal arteries. Post-dilation was performed with a coated balloon. An aortogram was then performed that demonstrated good closure of the aneurysm sac and good flow through the grafts bilaterally with no endoleaks. The right common femoral artery was then repaired with 6-0 Prolene suture. The clamps removed sequentially after removing any trapped air. There was excellent flow through the femoral artery by Doppler and palpation. The patient was given a calculated dose of protamine to reverse the heparin. An 8-Malagasy Angio-Seal was placed in the left common femoral artery with excellent results and hemostasis. The right femoral incision was then irrigated with copious amounts of antibiotic solution and normal saline. Instrument count and sponge counts were correct times 2. The wound was closed in layers utilizing 2-0 Vicryl on deep subcutaneous tissue, 3-0 Vicryl on superficial subcutaneous tissue and 3-0 subcuticular Vicryl on the skin. Sterile dressings were applied. The patient tolerated the procedure well and was transferred to the CV ICU in stable condition. TRANSINT:[id number] Voice Confirmation ID: [id number] DOCUMENT ID: [id number] DEMAR TORRES MD CC: [id number] DICTATION DATE: 10/02/18 1630 FUR SCRAPER: 10/02/181910 ADM IN [facility] [address] [place] [address]
--- NOTE | ~2018-09-27 | OP ---
PATIENT NAME: TERESO VILLARREAL MEDICAL RECORD: [id number] :50 LOCATION:D.[facility] D.CV08 ADMISSION DATE:09/27/18 SURGEON: FRIDA FORD MD DATE OF OPERATION: 10/08/2018 PREOPERATIVE DIAGNOSIS: Constipation, rule out obstructing colonic lesion. POSTOPERATIVE DIAGNOSES: Constipation, rule out obstructing colonic lesion with no evidence of an obstructing colonic lesion. There was a very lengthy polypoid structure, which may represent a very long inverted diverticulum or may represent a polyp. I did not recognize an adenomatous tip to this polypoid structure, which was long and thin and was approximately an inch long. PROCEDURES: 1. Total colonoscopy to cecum. 2. Hot biopsy forceps polypectomy times 1. SURGEON: Frida Ford MD BLOW PIT OPERATOR: None. BLOOD LOSS: Minimal. ANESTHESIA: IV sedation. COMPLICATIONS: None. The risks, possible complications and alternatives to the procedure were explained to the patient. He elects to proceed. ENDOSCOPIC COURSE: The patient was seen in his bed in his room in the CV ICU. IV sedation was induced by the anesthesia staff. The patient was placed in the [place] position. A digital rectal examination was performed. A colonoscope was inserted through the anus. It was easily advanced to the cecum. The prep was adequate. I slowly withdrew the endoscope. I irrigated and aspirated extensively. I dragged the folds. I utilized normal imaging as well as narrow band imaging. This polypoid structure was visualized. I grasped the mid portion of this polypoid structure and performed a hot biopsy forceps polypectomy of the structure. I then continued to withdraw the endoscope. The pullback was greater than a 16-minute pullback. A retroflexed view was obtained in the rectum. I then unretroflexed the scope and removed it under direct vision. I plan to see the patient in my office in 3 weeks. It is my understanding that he is going to be dismissed home later today. TRANSINT:[id number] Voice Confirmation ID: [id number] DOCUMENT ID: [id number] OPERATIVE REPORT [id number] VILLARREAL,FRIDA MENDOZA MD at 1522 CC: FREEDOM CONTRERAS MD, HENRY GUALLPA MD and DEMAR AMBROSE [id number] DICTATION DATE: 10/09/18 1043 DYE WEIGHER: 10/09/18 1200 DIS IN 10/09/18 [facility] [address] [place] [address]
--- NOTE | ~2018-09-27 | EC ---
PATIENT:TERESO VILLARREAL DATE OF SERVICE: 09/27/18 SEX: M MEDICAL RECORD: [id number] DATE OF : 50 [facility] AGE OF PATIENT: 68 ADMISSION DATE: 09/27/18 REFERRING PHYSICIAN: INTERPRETING PHYSICIAN: KAITLIN WILLIAMSON MD ECHOCARDIOGRAM REPORT ECHO CHARGES 5 ECHO LIMITED Date: 10/01/18 CLINICAL DIAGNOSIS: CHF HX OF CAD/STENTS ECHOCARDIOGRAPHIC MEASUREMENTS (adult normal given) AC root (d.<3.7cm) 0 cm LV Septum d (<1.2 cm> 0 cm Valve Excursion 0 cm LV Septum (systole) 0 cm Left Atria (s.<4.0cm> 0 cm LVPW d(<1.2cm) 0 cm RV (d.<2.3cm) 0 cm LVPW (sytole) 0 cm LV diastole(<5.6CM) 0 cm MV E-F(>70mm/sec) 0 cm LV systole 0 cm LVOT Diameter 0 cm MV exc.(>10mm) 0 cm Est.ejection fraction (50-75%) % DOPPLER: LVIT 0 cm/sec A 0 cm/sec E 0 cm/sec LA 0 cm/sec RVSP 0 mmHg LVOT 0 cm/sec AOP1/2T 0 m/s Asc. Ao 0 cm/sec RVOT 0 cm/sec RA 0 cm/sec PA 0 cm/sec AV Gradient Peak 0 mmHg AV Mean 0 mmHg AV Area 0 cm MV Gradient Peak 0 mmHg MV Mean 0 mmHg MV Area 0 cm COMMENTS: LIMITED STUDY (2-D ONLY) Compressor Operator Adjuster: 1 KADEEM DAVENPORT Telecommunication Lines Repairer: 2 Dr. Zambrano TAPE# PACS Pericardial Effusion N DATE OF SERVICE: 10/01/2018 LIMITED ECHOCARDIOGRAM FOR EJECTION FRACTION Left ventricular chamber size is mildly dilated. Left ventricular systolic function is moderately reduced. Overall ejection fraction in the 30% range, which is an improvement from last echocardiogram. TRANSINT:[id number] Voice Confirmation ID: [id number] DOCUMENT ID: [id number] ECHOCARDIOGRAM REPORT [id number] VILLARREALTERESO JEFFREY MD at 1228 CC: [id number] DICTATION DATE: 10/01/18 1007 SPANISH INTERPRETER: 10/01/18 1153 ADM IN [facility] [address] [place] [address]
[~2018-09-27 17:31] MED LIST: ASPIRIN81 MG PO; ATIVAN1 MG PO; BUMEX2 MG PO; COREG6.25 MG PO; GLIMEPIRIDE1 MG PO; LISINOPRIL5 MG PO; NEURONTIN 300300 MG POINH
[2018-09-27] MEDS ORDERED: IBS (17:38)
[2018-09-27 18:10] LABS: BASOPHILS 0.3 % (0-2); EOSINOPHILS 0.5 % (0-7); HEMATOCRIT 35.7 % (42.0-54.0); HEMOGLOBIN 11.2 g/dL (13.5-17.5); IMMATURE GRANULOCYTES 0.2 % (0-5); LYMPHOCYTES 16.5 % (15-50); MCH 22.4 pg (26.0-34.0); MCHC 31.4 g/dL (31.0-37.0); MCV 71.5 fL (80.0-100.0); MEAN PLATELET VOLUME 9.2 fL (7.4-10.4); NEUTROPHILS 70.5 % (40-80); PLATELET COUNT 276 10x3/uL (130-400); RBC 4.99 10x6/uL (4.20-6.10); RDW 19.8 % (11.5-14.5)
[2018-09-27 18:25] LABS: ALBUMIN 2.5 g/dL (3.4-5.0); ANION GAP 10.8 mmol/L (8-16); BILIRUBIN - TOTAL 0.66 mg/dL (0.2-1.3); CALCIUM 8.8 mg/dL (8.5-10.1); CARBON DIOXIDE 32.4 mmol/L (21.0-32.0); CREATININE - SERUM 1.1 mg/dL (0.6-1.3); POTASSIUM - SERUM 3.2 mmol/L (3.5-5.1); PROTEIN - SERUM 7.3 g/dL (6.4-8.2)
[2018-09-27 19:40] VITALS: BP 146/75
[2018-09-27 20:44] VITALS: BP 153/89
[2018-09-27 21:48] LABS: APTT 34.1 SECONDS (22.8-39.4); INR 1.34 (0.85-1.17)
[2018-09-27 22:09] VITALS: BP 162/69
[2018-09-27 22:40] LABS: ERYTHROCYTE SEDIMENTATION RATE 34 mm/hr (0-20)
[2018-09-27 22:43] LABS: APPEARANCE CLEAR (CLEAR); BILIRUBIN NEGATIVE (NEGATIVE); COLOR YELLOW (YELLOW); GLUCOSE NEGATIVE (NEGATIVE); KETONE MODERATE mg/dL (NEGATIVE); NITRITE NEGATIVE (NEGATIVE); PROTEIN TRACE mg/dL (NEGATIVE); RED CELLS - URINE RARE /hpf (0-5); UROBILINOGEN NORMAL (NORMAL); WHITE CELLS - URINE NSEEN /hpf (0-5)
[2018-09-27 23:24] VITALS: BP 154/84
[2018-09-27] MEDS ORDERED: ZANAFLEX4 MG PO (23:48)
[2018-09-28] VITALS (39 sets, daily range): BP systolic 90–167; BP diastolic 49–88; BMI 27.8
[2018-09-28 05:56] LABS: BASOPHILS 0.2 % (0-2); EOSINOPHILS 0.3 % (0-7); HEMATOCRIT 33.3 % (42.0-54.0); HEMOGLOBIN 10.2 g/dL (13.5-17.5); IMMATURE GRANULOCYTES 0.3 % (0-5); LYMPHOCYTES 17.8 % (15-50); MCH 22.1 pg (26.0-34.0); MCHC 30.6 g/dL (31.0-37.0); MCV 72.1 fL (80.0-100.0); MONOCYTES 9.5 % (2-11); NEUTROPHILS 71.9 % (40-80); PLATELET COUNT 248 10x3/uL (130-400); RBC 4.62 10x6/uL (4.20-6.10); RDW 19.8 % (11.5-14.5); WBC 6.5 10x3/uL (4.8-10.8)
[2018-09-28 06:24] LABS: ALBUMIN 2.2 g/dL (3.4-5.0); ANION GAP 12.4 mmol/L (8-16); BILIRUBIN - TOTAL 0.53 mg/dL (0.2-1.3); CALCIUM 8.3 mg/dL (8.5-10.1); CARBON DIOXIDE 32.9 mmol/L (21.0-32.0); CREATININE - SERUM 1.1 mg/dL (0.6-1.3); POTASSIUM - SERUM 3.3 mmol/L (3.5-5.1); PROTEIN - SERUM 6.2 g/dL (6.4-8.2)
[2018-09-28 13:48] LABS: % SATURATION 14 % (15-55); IRON 29 ug/dl (35-150); TOTAL IRON BIND CAPACITY 203 ug/dl (260-445); UNSAT IRON BIND CAPACITY 174 ug/dl (150-375)
[2018-09-29] VITALS (96 sets, daily range): BP systolic 79–140; BP diastolic 47–88
[2018-09-29 05:55] LABS: BASOPHILS 0.4 % (0-2); EOSINOPHILS 1.7 % (0-7); HEMOGLOBIN 10.1 g/dL (13.5-17.5); IMMATURE GRANULOCYTES 0.1 % (0-5); LYMPHOCYTES 22.7 % (15-50); MCH 22.2 pg (26.0-34.0); MCHC 30.6 g/dL (31.0-37.0); MCV 72.5 fL (80.0-100.0); MEAN PLATELET VOLUME 9.2 fL (7.4-10.4); MONOCYTES 11.4 % (2-11); NEUTROPHILS 63.7 % (40-80); PLATELET COUNT 266 10x3/uL (130-400); RBC 4.55 10x6/uL (4.20-6.10); RDW 20.1 % (11.5-14.5); WBC 7.5 10x3/uL (4.8-10.8)
[2018-09-29 06:09] LABS: ANION GAP 9.7 mmol/L (8-16); CARBON DIOXIDE 34.6 mmol/L (21.0-32.0); CHOL - HDL RATIO 3.7 ratio (2.3-4.9); CREATININE - SERUM 1.2 mg/dL (0.6-1.3); LDL-HDL RATIO 2.1 ratio (1.5-3.5); POTASSIUM - SERUM 3.3 mmol/L (3.5-5.1)
[2018-09-30] VITALS (82 sets, daily range): BP systolic 94–162; BP diastolic 45–93
[2018-09-30 06:06] LABS: BASOPHILS 0.3 % (0-2); EOSINOPHILS 3.1 % (0-7); HEMATOCRIT 32.7 % (42.0-54.0); HEMOGLOBIN 10.3 g/dL (13.5-17.5); IMMATURE GRANULOCYTES 0.3 % (0-5); LYMPHOCYTES 20.6 % (15-50); MCH 22.5 pg (26.0-34.0); MCHC 31.5 g/dL (31.0-37.0); MCV 71.6 fL (80.0-100.0); MEAN PLATELET VOLUME 9.2 fL (7.4-10.4); MONOCYTES 9.5 % (2-11); NEUTROPHILS 66.2 % (40-80); PLATELET COUNT 283 10x3/uL (130-400); RBC 4.57 10x6/uL (4.20-6.10); RDW 20.3 % (11.5-14.5); WBC 7.8 10x3/uL (4.8-10.8)
[2018-09-30 06:19] LABS: ANION GAP 7.8 mmol/L (8-16); CALCIUM 8.1 mg/dL (8.5-10.1); CREATININE - SERUM 1.2 mg/dL (0.6-1.3); POTASSIUM - SERUM 3.8 mmol/L (3.5-5.1)
[2018-10-01] VITALS (50 sets, daily range): BP systolic 98–144; BP diastolic 53–95; Ht 180.3 cm; Wt 66.8 kg
[2018-10-01 06:47] LABS: BASOPHILS 0.2 % (0-2); EOSINOPHILS 2.4 % (0-7); HEMATOCRIT 35.4 % (42.0-54.0); HEMOGLOBIN 11.3 g/dL (13.5-17.5); IMMATURE GRANULOCYTES 0.2 % (0-5); LYMPHOCYTES 18.5 % (15-50); MCH 22.8 pg (26.0-34.0); MCHC 31.9 g/dL (31.0-37.0); MCV 71.4 fL (80.0-100.0); MONOCYTES 8.5 % (2-11); NEUTROPHILS 70.2 % (40-80); PLATELET COUNT 312 10x3/uL (130-400); RBC 4.96 10x6/uL (4.20-6.10); RDW 20.5 % (11.5-14.5); WBC 8.6 10x3/uL (4.8-10.8)
[2018-10-01 06:59] LABS: ANION GAP 10.7 mmol/L (8-16); CALCIUM 8.7 mg/dL (8.5-10.1); CARBON DIOXIDE 35.4 mmol/L (21.0-32.0); CREATININE - SERUM 1.2 mg/dL (0.6-1.3); POTASSIUM - SERUM 4.1 mmol/L (3.5-5.1)
[2018-10-01 15:18] LABS: BASOPHILS 0.4 % (0-2); EOSINOPHILS 1.9 % (0-7); HEMATOCRIT 40.4 % (42.0-54.0); HEMOGLOBIN 12.9 g/dL (13.5-17.5); IMMATURE GRANULOCYTES 0.1 % (0-5); LYMPHOCYTES 22.5 % (15-50); MCHC 31.9 g/dL (31.0-37.0); MEAN PLATELET VOLUME 9.2 fL (7.4-10.4); MONOCYTES 8.4 % (2-11); NEUTROPHILS 66.7 % (40-80); PLATELET COUNT 360 10x3/uL (130-400); RBC 5.61 10x6/uL (4.20-6.10); RDW 20.7 % (11.5-14.5); WBC 8.6 10x3/uL (4.8-10.8)
[2018-10-01 15:26] LABS: APTT 32.4 SECONDS (22.8-39.4); INR 1.13 (0.85-1.17)
[2018-10-01 15:33] LABS: ALBUMIN 2.9 g/dL (3.4-5.0); ANION GAP 9.8 mmol/L (8-16); BILIRUBIN - TOTAL 0.6 mg/dL (0.2-1.3); CALCIUM 9.1 mg/dL (8.5-10.1); CARBON DIOXIDE 38.4 mmol/L (21.0-32.0); CREATININE - SERUM 1.3 mg/dL (0.6-1.3); POTASSIUM - SERUM 4.2 mmol/L (3.5-5.1); PROTEIN - SERUM 8.2 g/dL (6.4-8.2)
[2018-10-02] VITALS (42 sets, daily range): BP systolic 88–144; BP diastolic 49–82
[2018-10-02 06:44] LABS: BASOPHILS 0.3 % (0-2); EOSINOPHILS 1.6 % (0-7); HEMOGLOBIN 12.1 g/dL (13.5-17.5); IMMATURE GRANULOCYTES 0.2 % (0-5); LYMPHOCYTES 21.8 % (15-50); MCH 22.8 pg (26.0-34.0); MCHC 31.8 g/dL (31.0-37.0); MCV 71.6 fL (80.0-100.0); MEAN PLATELET VOLUME 9.2 fL (7.4-10.4); NEUTROPHILS 66.1 % (40-80); PLATELET COUNT 343 10x3/uL (130-400); RBC 5.31 10x6/uL (4.20-6.10); RDW 20.7 % (11.5-14.5); WBC 9.2 10x3/uL (4.8-10.8)
[2018-10-02 06:57] LABS: ANION GAP 13.8 mmol/L (8-16); CALCIUM 8.9 mg/dL (8.5-10.1); CARBON DIOXIDE 32.7 mmol/L (21.0-32.0); CREATININE - SERUM 1.4 mg/dL (0.6-1.3); POTASSIUM - SERUM 4.5 mmol/L (3.5-5.1)
[2018-10-03] VITALS (46 sets, daily range): BP systolic 97–137; BP diastolic 42–78
[2018-10-03 06:40] LABS: ANION GAP 9.4 mmol/L (8-16); CALCIUM 8.2 mg/dL (8.5-10.1); CARBON DIOXIDE 33.3 mmol/L (21.0-32.0); CREATININE - SERUM 1.3 mg/dL (0.6-1.3); POTASSIUM - SERUM 4.7 mmol/L (3.5-5.1); VANCOMYCIN - RANDOM 21.6 ug/mL (10.0-20.0)
[2018-10-03 07:00] LABS: BASOPHILS 0.1 % (0-2); EOSINOPHILS 0 % (0-7); HEMATOCRIT 31.4 % (42.0-54.0); HEMOGLOBIN 9.9 g/dL (13.5-17.5); IMMATURE GRANULOCYTES 0.1 % (0-5); LYMPHOCYTES 16.8 % (15-50); MCH 22.6 pg (26.0-34.0); MCHC 31.5 g/dL (31.0-37.0); MCV 71.5 fL (80.0-100.0); MEAN PLATELET VOLUME 8.9 fL (7.4-10.4); MONOCYTES 7.1 % (2-11); NEUTROPHILS 75.9 % (40-80); PLATELET COUNT 310 10x3/uL (130-400); RBC 4.39 10x6/uL (4.20-6.10); RDW 20.3 % (11.5-14.5); WBC 7.2 10x3/uL (4.8-10.8)
[2018-10-04] VITALS (24 sets, daily range): BP systolic 105–138; BP diastolic 50–79
[2018-10-05] VITALS (24 sets, daily range): BP systolic 102–147; BP diastolic 47–78
[2018-10-05 05:50] LABS: BASOPHILS 0.3 % (0-2); EOSINOPHILS 1.5 % (0-7); IMMATURE GRANULOCYTES 0.3 % (0-5); MCH 22.2 pg (26.0-34.0); MCHC 31.3 g/dL (31.0-37.0); MCV 71.1 fL (80.0-100.0); MEAN PLATELET VOLUME 8.7 fL (7.4-10.4); MONOCYTES 11.1 % (2-11); NEUTROPHILS 63.8 % (40-80); PLATELET COUNT 309 10x3/uL (130-400); RDW 20.1 % (11.5-14.5); WBC 7.4 10x3/uL (4.8-10.8)
[2018-10-05 06:31] LABS: ALBUMIN 2.5 g/dL (3.4-5.0); ANION GAP 15.6 mmol/L (8-16); BILIRUBIN - TOTAL 0.51 mg/dL (0.2-1.3); CALCIUM 9.2 mg/dL (8.5-10.1); CARBON DIOXIDE 29.8 mmol/L (21.0-32.0); CREATININE - SERUM 1.3 mg/dL (0.6-1.3); POTASSIUM - SERUM 4.4 mmol/L (3.5-5.1); PROTEIN - SERUM 7.6 g/dL (6.4-8.2)
[2018-10-05 18:10] LABS: AEROBE ID Final report (())
[2018-10-05 18:10] LABS: AEROBE ID Final report (())
[2018-10-06] VITALS (24 sets, daily range): BP systolic 90–130; BP diastolic 39–73
[2018-10-06 06:55] LABS: BASOPHILS 0.5 % (0-2); EOSINOPHILS 3.8 % (0-7); HEMATOCRIT 30.8 % (42.0-54.0); HEMOGLOBIN 9.6 g/dL (13.5-17.5); IMMATURE GRANULOCYTES 0.2 % (0-5); LYMPHOCYTES 26.9 % (15-50); MCH 22.3 pg (26.0-34.0); MCHC 31.2 g/dL (31.0-37.0); MCV 71.6 fL (80.0-100.0); MEAN PLATELET VOLUME 8.9 fL (7.4-10.4); NEUTROPHILS 55.6 % (40-80); PLATELET COUNT 317 10x3/uL (130-400); RDW 20.2 % (11.5-14.5); WBC 6.5 10x3/uL (4.8-10.8)
[2018-10-06 07:07] LABS: ALBUMIN 2.4 g/dL (3.4-5.0); ANION GAP 9.2 mmol/L (8-16); BILIRUBIN - TOTAL 0.45 mg/dL (0.2-1.3); CARBON DIOXIDE 33.6 mmol/L (21.0-32.0); CREATININE - SERUM 1.3 mg/dL (0.6-1.3); POTASSIUM - SERUM 4.8 mmol/L (3.5-5.1); PROTEIN - SERUM 7.5 g/dL (6.4-8.2)
[2018-10-07] VITALS (23 sets, daily range): BP systolic 93–141; BP diastolic 38–71
[2018-10-07 06:25] LABS: BASOPHILS 0.4 % (0-2); EOSINOPHILS 2.5 % (0-7); HEMATOCRIT 30.3 % (42.0-54.0); HEMOGLOBIN 9.5 g/dL (13.5-17.5); LYMPHOCYTES 21.4 % (15-50); MCH 22.4 pg (26.0-34.0); MCHC 31.4 g/dL (31.0-37.0); MCV 71.5 fL (80.0-100.0); MEAN PLATELET VOLUME 8.8 fL (7.4-10.4); MONOCYTES 11.8 % (2-11); NEUTROPHILS 63.9 % (40-80); PLATELET COUNT 315 10x3/uL (130-400); RBC 4.24 10x6/uL (4.20-6.10); RDW 19.8 % (11.5-14.5); WBC 6.9 10x3/uL (4.8-10.8)
[2018-10-07 06:43] LABS: ALBUMIN 2.5 g/dL (3.4-5.0); ANION GAP 10.4 mmol/L (8-16); BILIRUBIN - TOTAL 0.61 mg/dL (0.2-1.3); CARBON DIOXIDE 31.4 mmol/L (21.0-32.0); CREATININE - SERUM 1.1 mg/dL (0.6-1.3); POTASSIUM - SERUM 4.8 mmol/L (3.5-5.1); PROTEIN - SERUM 7.4 g/dL (6.4-8.2)
[2018-10-08] VITALS (27 sets, daily range): BP systolic 92–147; BP diastolic 45–77
[2018-10-08 07:55] LABS: BASOPHILS 0.5 % (0-2); EOSINOPHILS 1.1 % (0-7); HEMATOCRIT 29.7 % (42.0-54.0); HEMOGLOBIN 9.3 g/dL (13.5-17.5); IMMATURE GRANULOCYTES 0.1 % (0-5); MCH 22.4 pg (26.0-34.0); MCHC 31.3 g/dL (31.0-37.0); MCV 71.6 fL (80.0-100.0); MONOCYTES 9.6 % (2-11); NEUTROPHILS 66.7 % (40-80); PLATELET COUNT 348 10x3/uL (130-400); RBC 4.15 10x6/uL (4.20-6.10); RDW 19.6 % (11.5-14.5); WBC 7.5 10x3/uL (4.8-10.8)
[2018-10-08 08:11] LABS: ALBUMIN 2.4 g/dL (3.4-5.0); ANION GAP 14.6 mmol/L (8-16); BILIRUBIN - TOTAL 0.55 mg/dL (0.2-1.3); CALCIUM 8.9 mg/dL (8.5-10.1); CARBON DIOXIDE 29.9 mmol/L (21.0-32.0); CREATININE - SERUM 1.1 mg/dL (0.6-1.3); POTASSIUM - SERUM 4.5 mmol/L (3.5-5.1); PROTEIN - SERUM 7.2 g/dL (6.4-8.2)
[2018-10-08] MEDS ORDERED: PLAVIX75 MG PO (11:52)
[2018-10-08] MEDS ORDERED: COLACE100 MG PO (11:54)
[2018-10-08] MEDS ORDERED: K-DUR20 MEQ PO (11:54)
[2018-10-08] MEDS ORDERED: MIRALAX17 GM PO (11:55)
[2018-10-08] MEDS ORDERED: FLORAJEN3 CAPS460 MG PO (11:55)
[2018-10-09] VITALS: BP 103/54
[2018-10-09 01:30] VITALS: BP 124/69
[2018-10-09 03:00] VITALS: BP 111/60
[2018-10-09 06:01] VITALS: BP 104/56
[2018-10-09 07:00] VITALS: BP 108/59
[2018-10-09 11:00] VITALS: BP 125/68
== END 2018-10-09 12:50 | disposition home or self-care (01) | DRG 268 ==
LOC: D.ER 17:31 → D.M2 22:27 → D.CVICU 22:27
PROVIDERS: Emergency Medicine; Family Medicine; Family Medicine Adult Medicine; Internal Medicine Cardiovascular Disease; Internal Medicine Nephrology
PROC: 05H633Z Insertion of Infusion Device into Left Subclavian Vein, Percutaneous Approach (ICD-10-PCS; principal; 2018-09-28)
PROC: 04V03DZ Restriction of Abdominal Aorta with Intraluminal Device, Percutaneous Approach (ICD-10-PCS; 2018-10-02)
PROC: 0DBE8ZZ Excision of Large Intestine, Via Natural or Artificial Opening Endoscopic (ICD-10-PCS; 2018-10-08)
DX: I71.4 Abdominal aortic aneurysm, without rupture (principal); I50.43 Acute on chronic combined systolic (congestive) and diastolic (congestive) heart failure; E44.0 Moderate protein-calorie malnutrition; L97.909 Non-pressure chronic ulcer of unspecified part of unspecified lower leg with unspecified severity; I11.0 Hypertensive heart disease with heart failure; I25.10 Atherosclerotic heart disease of native coronary artery without angina pectoris; I25.5 Ischemic cardiomyopathy; E11.65 Type 2 diabetes mellitus with hyperglycemia; E11.40 Type 2 diabetes mellitus with diabetic neuropathy, unspecified; E87.6 Hypokalemia; D50.9 Iron deficiency anemia, unspecified; I72.8 Aneurysm of other specified arteries; Z68.27 Body mass index [BMI] 27.0-27.9, adult; K59.00 Constipation, unspecified; R60.1 Generalized edema; Z95.5 Presence of coronary angioplasty implant and graft; I83.019 Varicose veins of right lower extremity with ulcer of unspecified site; I73.9 Peripheral vascular disease, unspecified; Z89.512 Acquired absence of left leg below knee; K52.9 Noninfective gastroenteritis and colitis, unspecified; I87.2 Venous insufficiency (chronic) (peripheral)

== ENCOUNTER 2019-03-24 22:55 | Inpatient (IN) | payer MEDICARE ==
[~2019-03-24 22:55] MED LIST changes: +COLACE100 MG PO; +FLORAJEN3 CAPS460 MG PO; +IBS; +K-DUR20 MEQ PO; +MIRALAX17 GM PO; +PLAVIX75 MG PO; +ZANAFLEX4 MG PO
[2019-03-24] MEDS ORDERED: ULTRAM50 MG PO (23:05)
[2019-03-24 23:23] LABS: BASOPHILS 0.2 % (0-2); EOSINOPHILS 0.7 % (0-7); HEMATOCRIT 27.1 % (42.0-54.0); HEMOGLOBIN 8.4 g/dL (13.5-17.5); IMMATURE GRANULOCYTES 0.1 % (0-5); LYMPHOCYTES 8.6 % (15-50); MCH 20.6 pg (26.0-34.0); MCV 66.4 fL (80.0-100.0); MEAN PLATELET VOLUME 7.8 fL (7.4-10.4); MONOCYTES 7.3 % (2-11); NEUTROPHILS 83.1 % (40-80); PLATELET COUNT 293 10x3/uL (130-400); RBC 4.08 10x6/uL (4.20-6.10); RDW 18.1 % (11.5-14.5); WBC 8.5 10x3/uL (4.8-10.8)
[2019-03-24 23:40] LABS: ALBUMIN 2.9 g/dL (3.4-5.0); ANION GAP 14.1 mmol/L (8-16); BILIRUBIN - TOTAL 0.6 mg/dL (0.2-1.3); CALCIUM 8.9 mg/dL (8.5-10.1); CARBON DIOXIDE 26.8 mmol/L (21.0-32.0); POTASSIUM - SERUM 3.9 mmol/L (3.5-5.1); PROTEIN - SERUM 8.2 g/dL (6.4-8.2)
[2019-03-24 23:43] LABS: TROPONIN-I 0.017 ng/mL (0.000-0.060)
[2019-03-25] VITALS (8 sets, daily range): BP systolic 113–162; BP diastolic 71–98; BMI 23.5; BMI 23.3
[2019-03-25 00:36] LABS: APPEARANCE HAZY (CLEAR); BILIRUBIN NEGATIVE (NEGATIVE); COLOR YELLOW (YELLOW); GLUCOSE NEGATIVE (NEGATIVE); KETONE NEGATIVE (NEGATIVE); NITRITE NEGATIVE (NEGATIVE); PROTEIN 1+ mg/dL (NEGATIVE); UROBILINOGEN NORMAL (NORMAL)
[2019-03-25 00:37] LABS: BACTERIA FEW /hpf (NONE SEEN); EPITHELIAL CELLS RARE /hpf (0-5); GRANULAR CAST 0-5 /lpf (NONE SEEN); HYALINE CAST 0-5 /lpf (NONE SEEN); RED CELLS - URINE 0-5 /hpf (0-5)
--- NOTE | 2019-03-25 01:45 | NUR ---
PT SITTING UP ON BED, PT UPDATED ON PLAN OF CARE. NO S/S OF ACUTE DISTRESS NOTED.
--- NOTE | 2019-03-25 02:12 | NUR ---
LAB AT PT BEDSIDE DRAWING BLOOD CULTURES.
--- NOTE | 2019-03-25 02:19 | NUR ---
BLOOD CULTURES OBTAINED BY LAB. ZOSYN INFUSION STARTED AT THIS TIME.
--- NOTE | 2019-03-25 02:28 | NUR ---
PT ARRIVED VIA W/C FROM ER. NO DISTRESS NOTED. AT BEDSIDE.
--- NOTE | 2019-03-25 03:24 | NUR ---
ADMISSION ASSESSMENT. HISTORY AND HOME MED LIST COMPLETED. PT ASKING WHEN NEXT MORPHINE IS DUE. PT INFORMED NOT UNTIL 0530 HRS. PT STATED OK. IV TO LAC WITH NS AT 200CC/HR. IV PATENT. LUNGS ESSENTIALLY CTA. 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 SCABS/SORES NOTED TO LOWER R LEG. DEFORMITY NOTED TO TOES OF R FOOT. SISTER AT BEDSIDE. SR UP X1, CALL LIGHT WITHIN REACH.
--- NOTE | 2019-03-25 04:45 | NUR ---
PT RESTING WITH EYES CLOSED. RESP EVEN AND REGULAR. SR UP X2, CALL LIGHT WITHIN REACH.
--- NOTE | 2019-03-25 06:30 | NUR ---
PT RESTING WITH EYES CLOSED. RESP EVEN AND REGULAR. NEEDS MET;WILL CONTINUE TO MONITOR.
--- NOTE | 2019-03-25 07:00 | NUR ---
RECEIVED PT FROM OFFGOING NIGHT NURSE. PT RESTING IN BED AWAKE ALERT AND ORIENTED. TWO SCABS TO RIGHT LOWER LEG. LEFT LEG BKA HEALED. VSS. WILL CONTINUE TO MONITOR
[2019-03-25 09:59] LABS: BASOPHILS 0.3 % (0-2); EOSINOPHILS 0.6 % (0-7); HEMATOCRIT 26.5 % (42.0-54.0); HEMOGLOBIN 8.1 g/dL (13.5-17.5); IMMATURE GRANULOCYTES 0.3 % (0-5); LYMPHOCYTES 8.7 % (15-50); MCH 20.5 pg (26.0-34.0); MCHC 30.6 g/dL (31.0-37.0); MCV 66.9 fL (80.0-100.0); MEAN PLATELET VOLUME 8.2 fL (7.4-10.4); MONOCYTES 9.8 % (2-11); NEUTROPHILS 80.3 % (40-80); PLATELET COUNT 286 10x3/uL (130-400); RBC 3.96 10x6/uL (4.20-6.10); RDW 17.9 % (11.5-14.5); WBC 7.1 10x3/uL (4.8-10.8)
--- NOTE | 2019-03-25 10:30 | NUR ---
RIGHT DORSALIS PEDIS AND TIBIAL PULSES FOUND WITH DOPPLER.
[2019-03-25 11:40] LABS: ANION GAP 12.9 mmol/L (8-16); CALCIUM 8.8 mg/dL (8.5-10.1); POTASSIUM - SERUM 3.9 mmol/L (3.5-5.1)
[2019-03-25 14:16] LABS: % SATURATION 7 % (15-55); IRON 20 ug/dl (35-150); TOTAL IRON BIND CAPACITY 276 ug/dl (260-445); UNSAT IRON BIND CAPACITY 256 ug/dl (150-375)
[2019-03-25 14:24] LABS: APTT 36.8 SECONDS (22.8-39.4); INR 1.31 (0.85-1.17); PROTIME 15.8 SECONDS (11.6-15.0)
--- NOTE | 2019-03-25 18:57 | NUR ---
REPORT GIVEN TO ONCOMING NURSE. PT RESTING IN BED WITH NO COMPLAINTS
--- NOTE | 2019-03-25 20:26 | NUR ---
HS MEDS GIVEN WITH FRESH ICE WATER.
--- NOTE | 2019-03-25 20:56 | NUR ---
PT IN BR HAVING BM.
--- NOTE | 2019-03-25 23:05 | NUR ---
RESTING WITH EYES CLOSED, RESPERATIONS EVEN, NO S/S DISTRESS NOTED.
[2019-03-26 04:06] VITALS: BP 130/77
[2019-03-26 05:01] LABS: BASOPHILS 0.3 % (0-2); EOSINOPHILS 0.5 % (0-7); HEMATOCRIT 26.3 % (42.0-54.0); IMMATURE GRANULOCYTES 0.3 % (0-5); LYMPHOCYTES 9.8 % (15-50); MCH 20.5 pg (26.0-34.0); MCHC 30.4 g/dL (31.0-37.0); MCV 67.3 fL (80.0-100.0); MEAN PLATELET VOLUME 8.3 fL (7.4-10.4); MONOCYTES 9.8 % (2-11); NEUTROPHILS 79.3 % (40-80); PLATELET COUNT 313 10x3/uL (130-400); RBC 3.91 10x6/uL (4.20-6.10); RDW 18.2 % (11.5-14.5); WBC 7.4 10x3/uL (4.8-10.8)
[2019-03-26 05:15] LABS: ANION GAP 14.4 mmol/L (8-16); CALCIUM 8.9 mg/dL (8.5-10.1); CREATININE - SERUM 2.3 mg/dL (0.6-1.3); MAGNESIUM - SERUM 2.4 mg/dL (1.8-2.4); POTASSIUM - SERUM 4.4 mmol/L (3.5-5.1); THYROID STIMULATING HORMONE 1.52 uIU/mL (0.36-3.74)
--- NOTE | 2019-03-26 07:30 | NUR ---
REPORT RECIEVED AND ROUNDING COMPLETE. PT SITTING UP ON THE SIDE OF. PT STATES HE HAS NO NEEDS AT THIS TIME. HE STATES HE IS READY TO GO HOME. PT HAS A LEFT AC THATS RUNNING NS AT 50. NO S/SX OF INFILTRATION AT THIS TIME. CALL LIGHT WITHIN REACH AND BED IN LOWEST POSITION.
[2019-03-26 07:58] VITALS: BP 134/77
--- NOTE | 2019-03-26 08:15 | NUR ---
SPED TEACHER REPORT THAT PT HAD PULLED OUT PIV. UPON ENETRING ROOM PT HAD RIGHT AC PIV OUT, CATH INTACT. CLEANED UP PT'S ARM. NO BLEEDING NOTED. PT ASKED TO WAIT AWHILE UNTIL I PLACE NEW PIV. EXPLAINED HE HAD MORNING MEDS THAT HE HAD TO HAVE THROUGH HIS PIV HE STATES THEY COULD WAIT TO. PT STATES HE WAS UNSURE ON HOW IT CAME OUT IN THE FIRST PLACE.
[2019-03-26 12:15] VITALS: BP 129/69
--- NOTE | 2019-03-26 15:33 | NUR ---
I have reviewed this patient and I concur with the Shift Assessment completed by the Licensed Practical Nurse today this shift.
--- NOTE | 2019-03-26 15:48 | MORECARE ---
CASE MANAGEMENT DISCHARGE SUMMARY PATIENT: TERESO VILLARREAL UNIT: [id number] ADM DATE: 03/25/19 AGE: 69 : 50 SEX: M ROOM/BED: D.2122 AUTHOR: MERCEDEZ,DOC PHYSICIAN: REFERRING PHYSICIAN: EDITA EDWARDS MD DATE OF SERVICE: 03/26/19 Discharge Plan Patient Name: TERESO VILLARREAL Facility: [facility]:[place] : 1950 Planned Disposition: Home Anticipated Discharge Date: Discharge Date: Expected LOS: 0 Initial Reviewer: [email or web address] Initial Review Date: 03/26/2019 Generated: 03/26/19 4:48 pm Comments DCP- Discharge Planning Updated by [email or web address]: Leo Mayo on 03/26/19 2:[address] Patient Name: TERESO VILLARREAL Admission Status: ER Accout number: [id number] Admission Date: 03-25-2019 : 1950 Admission Diagnosis:UNSPECIFIED ABDOMINAL PAIN Attending: EDITA EDWARDS Current LOS: 1 Anticipated DC Date: Planned Disposition: Home Primary Insurance: MEDICARE A & B Discharge Planning Comments: CM MET WITH PT IN ROOM TO DISCUSS DISCHARGE PLANNING AND NEEDS. PT REPORTS LIVING AT HOME INDEPENDENTLY AND ALONE. PT REPORTS HIS STEP DAD LIVES "ABOUT 100 YARDS AWAY" IF PT NEEDS ANYTHING AT HOME. PT HAS LEFT LOWER LEG PROSTHESIS; PT ALSO HAS TWO WALKERS THAT HE NO LONGER USES AND HAS NO MEDICAL EQUIPMENT PROVIDER PREFERENCE. PT HAS NO OUTSIDE SERVICES ASSISTING IN THE HOME. CM DISCUSSED AVAILABILITY OF HOME HEALTH, REHAB SERVICES AND MEDICAL EQUIPMENT. PT DENIES DISCHARGE NEEDS, REPORTS FAMILY WILL PICK HIM UP FOR DISCHARGE HOME. PT PLANS TO DISCHARGE HOME ALONE, FAMILY TO TRANSPORT. PT HAS NO ANTICIPATED DISCHARGE NEEDS AT THIS TIME. CM TO FOLLOW AND ASSIST IF NEEDED. Mine Motor Engineer: Leo Mayo DCPIA - Discharge Planning Initial Assessment Updated by [email or web address]: Leo Mayo on 03/26/19 3:41 pm * Is the patient Alert and Oriented? Yes * How many steps to enter\\exit or inside your home? * PCP DR. DE LEON, [place] * [facility] [place] [place] * Preadmission Environment Home Alone * ADLs Independent * Equipment Walker * Other Equipment HAS TWO WALKERS - NOT CURRENTLY USING LEFT LOWER LEG PROSTHESIS NO MEDICAL EQUIPMENT PROVIDER PREFERENCE * List name and contact numbers for known caregivers / representatives who currently or will assist patient after discharge: EKTA STEVE DTR, * Verbal permission to speak to the caregivers and representatives has been obtained from the patient. N/A * Community resources currently utilized None * Please name any agencies selected above. NONE * Additional services required to return to the preadmission environment? No * Can the patient safely return to the preadmission environment? Yes * Has this patient been hospitalized within the prior 30 days at any hospital? No Patient Name: TERESO VILLARREAL Page [phone] at 1548 All edits/amendments must be made on the electronic document DICTATION DATE: 03/26/191546 INTERNATIONAL ORGANIZER: ROB 03/26/191546 RPT#: [id number] DC DATE: STATUS: ADM IN [facility] [address] [place] [address] END OF REPORT
[2019-03-26 16:00] VITALS: BP 126/62
--- NOTE | 2019-03-26 16:45 | NUR ---
PLACED A 22 GAUGE PIV IN PATIENTS RIGHT WRIST, 1 STICK, GREAT RETURN, PATIENT TOLERATED WELL. NO OTHER NEEDS AT THIS TIME CALL LIGTH WITHIN REACH BED IN LOWEST POSITION.
--- NOTE | 2019-03-26 19:34 | NUR ---
ASSESSMENT COMPLETE. PT A&O. RESPERATIONS EVEN ON RA. IV TO RIGHT WRIST SL. SITE CLEAN AND DRY. PT DENIES PAIN OR NEEDS. FAMILY AT BED SIDE, BED LOW, CL IN REACH.
[2019-03-26 20:00] VITALS: BP 137/80
[2019-03-27] VITALS: BP 127/74
[2019-03-27 02:52] LABS: BASOPHILS 0.2 % (0-2); EOSINOPHILS 0.6 % (0-7); HEMOGLOBIN 7.9 g/dL (13.5-17.5); IMMATURE GRANULOCYTES 0.3 % (0-5); LYMPHOCYTES 6.1 % (15-50); MCH 20.5 pg (26.0-34.0); MCHC 30.4 g/dL (31.0-37.0); MCV 67.5 fL (80.0-100.0); MEAN PLATELET VOLUME 8.2 fL (7.4-10.4); MONOCYTES 9.3 % (2-11); NEUTROPHILS 83.5 % (40-80); PLATELET COUNT 272 10x3/uL (130-400); RBC 3.85 10x6/uL (4.20-6.10); RDW 18.3 % (11.5-14.5)
[2019-03-27 03:08] LABS: ANION GAP 14.8 mmol/L (8-16); CALCIUM 8.4 mg/dL (8.5-10.1); CARBON DIOXIDE 23.8 mmol/L (21.0-32.0); CREATININE - SERUM 2.6 mg/dL (0.6-1.3); VANCOMYCIN - TROUGH 10.4 ug/mL (10.0-20.0)
[2019-03-27 03:24] LABS: POTASSIUM - SERUM 3.6 mmol/L (3.5-5.1)
[2019-03-27 04:30] VITALS: BP 131/78
--- NOTE | 2019-03-27 08:11 | NUR ---
ASSESSMENT DONE. DENIES NEEDS.
[2019-03-27 08:40] VITALS: BP 133/73
[2019-03-27 12:30] VITALS: BP 128/75
[2019-03-27 15:14] LABS: ANA REFLEX - DIRECT Negative (Negative)
[2019-03-27 16:36] VITALS: BP 131/84
--- NOTE | 2019-03-27 17:31 | NUR ---
WITHOUT CHANGES OR DISTRESS NOTED AT THIS TIME. DENIES NEEDS.
[2019-03-27 20:00] VITALS: BP 131/76
[2019-03-28 00:30] VITALS: BP 138/72
--- NOTE | 2019-03-28 03:22 | NUR ---
RESTING WITH EYES CLOSED, RESPERATIONS EVEN, NO S/S DISTRESS NOTED.
[2019-03-28 04:20] VITALS: BP 133/78
[2019-03-28 06:04] LABS: BASOPHILS 0.2 % (0-2); EOSINOPHILS 1.3 % (0-7); HEMATOCRIT 25.8 % (42.0-54.0); HEMOGLOBIN 7.8 g/dL (13.5-17.5); IMMATURE GRANULOCYTES 0.2 % (0-5); MCH 20.3 pg (26.0-34.0); MCHC 30.2 g/dL (31.0-37.0); MCV 67.2 fL (80.0-100.0); MEAN PLATELET VOLUME 8.3 fL (7.4-10.4); NEUTROPHILS 83.3 % (40-80); PLATELET COUNT 263 10x3/uL (130-400); RBC 3.84 10x6/uL (4.20-6.10); RDW 19.2 % (11.5-14.5); WBC 8.3 10x3/uL (4.8-10.8)
[2019-03-28 06:29] LABS: ANION GAP 17.2 mmol/L (8-16); CALCIUM 8.5 mg/dL (8.5-10.1); CARBON DIOXIDE 23.4 mmol/L (21.0-32.0); CREATININE - SERUM 2.5 mg/dL (0.6-1.3); POTASSIUM - SERUM 3.6 mmol/L (3.5-5.1); VANCOMYCIN - TROUGH 29.2 ug/mL (10.0-20.0)
--- NOTE | 2019-03-28 07:45 | NUR ---
ASSESSMENT DONE. NO DISTRESS NOTED. DENIES NEEDS AT THIS TIME. CALL LIGHT WITHIN REACH. BED AT LOWEST POSITION. WILL CONTINUE TO MONITOR.
[2019-03-28 08:23] VITALS: BP 149/76
[2019-03-28 11:29] VITALS: BP 151/68
--- NOTE | 2019-03-28 14:44 | NUR ---
Nutrition follow-up: Diet: Renal ADA PO Intake 100% of some meals; pt has also been NPO Labs reviewed Wt: 172# +BM RDN following.
--- NOTE | 2019-03-28 15:00 | NUR ---
PT FOUND IN FLOOR SAYS HIS PROSTHESIS POPPED OFF AND HE SLID DOWN. MANOLO NICOLE NOTIFYED, AND SEEN PT.CS STARS DONE
[2019-03-28 15:58] VITALS: BP 141/72
--- NOTE | 2019-03-28 19:33 | NUR ---
BED LOW AND LOCKED AND CALL LIGHT IN REACH SR X2 LCTA AND SKIN WARM AND DRY AND BOWEL SOUNDS X4 DENIES NEEDS AT THIS TIME
[2019-03-28 20:00] VITALS: BP 139/82
[2019-03-29] VITALS (7 sets, daily range): BP systolic 106–156; BP diastolic 59–96
--- NOTE | 2019-03-29 00:32 | NUR ---
PT HAD SELF DCED IV WITH CATH IINTACT RESTARTED TO LEFT AC WITH 22 GA
--- NOTE | 2019-03-29 04:10 | NUR ---
I have reviewed this patient and I concur with the Shift Assessment completed by the Licensed Practical Nurse today this shift.
[2019-03-29 06:45] LABS: ANION GAP 17.4 mmol/L (8-16); CALCIUM 8.8 mg/dL (8.5-10.1); CARBON DIOXIDE 22.5 mmol/L (21.0-32.0); CREATININE - SERUM 2.7 mg/dL (0.6-1.3); POTASSIUM - SERUM 3.9 mmol/L (3.5-5.1)
--- NOTE | 2019-03-29 07:29 | NUR ---
REPORT RECEIVED. WILL CONTINUE WITH POC. PT CURRENTLY SITTING ON EDGE OF BED. CALL LIGHT W/I REACH. PT IS AAO AND UP WITH ASSIST. PT DENIES ANY NEEDS AT THIS TIME. RR EVEN AND UNLABORED ON RA. L.AC PIV IS SALINE LOCKED. NO S/S OF DISTRESS NOTED. WILL CTM.
[2019-03-29 07:48] LABS: BASOPHILS 0.3 % (0-2); EOSINOPHILS 1.1 % (0-7); HEMATOCRIT 26.8 % (42.0-54.0); HEMOGLOBIN 8.2 g/dL (13.5-17.5); IMMATURE GRANULOCYTES 0.3 % (0-5); LYMPHOCYTES 9.3 % (15-50); MCH 20.5 pg (26.0-34.0); MCHC 30.6 g/dL (31.0-37.0); MEAN PLATELET VOLUME 8.6 fL (7.4-10.4); MONOCYTES 10.3 % (2-11); NEUTROPHILS 78.7 % (40-80); RDW 19.4 % (11.5-14.5); WBC 7.9 10x3/uL (4.8-10.8)
[2019-03-29 07:50] LABS: PLATELET COUNT 334 10x3/uL (130-400)
--- NOTE | 2019-03-29 19:32 | NUR ---
ASSESSMENT COMPLETE, PT A&O. RESPERATOINS EVEN ON RA. PT SITTING UP ON SIDE OF BED. IV TO LEFT AC SL. SITE CLEAN AND DRY. PT CURRENLTY DENIES PAIN OR NEEDS, BED LOW, CL IN REACH.
--- NOTE | 2019-03-29 20:47 | NUR ---
HS MEDS GIVEN WITH FRESH ICE WATER. BS COVERED PER S/S.
--- NOTE | 2019-03-30 02:53 | NUR ---
RESTING WITH EYES CLOSED, RESPERATIONS EVEN, NO S/S DISTRESS NOTED.
--- NOTE | 2019-03-30 03:02 | NUR ---
I have reviewed this patient and I concur with the Shift Assessment completed by the Licensed Practical Nurse today this shift.
[2019-03-30 04:00] VITALS: BP 123/73
[2019-03-30 07:08] LABS: BASOPHILS 0.1 % (0-2); EOSINOPHILS 1.8 % (0-7); HEMATOCRIT 26.4 % (42.0-54.0); HEMOGLOBIN 8.1 g/dL (13.5-17.5); IMMATURE GRANULOCYTES 0.2 % (0-5); LYMPHOCYTES 5.8 % (15-50); MCH 20.9 pg (26.0-34.0); MCHC 30.7 g/dL (31.0-37.0); MCV 68.2 fL (80.0-100.0); MONOCYTES 6.5 % (2-11); NEUTROPHILS 85.6 % (40-80); PLATELET COUNT 279 10x3/uL (130-400); RBC 3.87 10x6/uL (4.20-6.10); RDW 20.5 % (11.5-14.5); WBC 9.6 10x3/uL (4.8-10.8)
[2019-03-30 07:14] LABS: ANION GAP 18.1 mmol/L (8-16); CALCIUM 8.5 mg/dL (8.5-10.1); CARBON DIOXIDE 21.6 mmol/L (21.0-32.0); CREATININE - SERUM 3.1 mg/dL (0.6-1.3); POTASSIUM - SERUM 3.7 mmol/L (3.5-5.1)
[2019-03-30 09:37] VITALS: BP 136/75
--- NOTE | 2019-03-30 12:04 | NUR ---
I have reviewed this patient and I concur with the Shift Assessment completed by the Licensed Practical Nurse today this shift.
[2019-03-30 15:18] VITALS: BP 126/76
[2019-03-30 18:48] VITALS: BP 139/84
[2019-03-30 20:00] VITALS: BP 132/81
--- NOTE | 2019-03-30 22:08 | NUR ---
INITIAL ROUNDS COMPLETED AT 1915 HRS. PT DENIED ANY DISCOMFORT. ASSESSMENT COMPLETED AT 2030 HRS. VSS. SR PER CM HR 99. IV TO LAC SL. SCABS NOTED TO Lola CURRY. ALERT AND ORIENTED TO PERSON, PLACE AND TIME. MAE. KIT LANDIN NOTED WITH PROTHESIS IN PLACE. LUNGS ESSENTIALLY CTA. IV TO LAC SL. PM FSBS 185. 2 UNITS REG INSUON GIVEN SUB-Q TO UPPER R ARM. PM MEDS GIVEN. PM SNACK SERVED. PT CURRENTLY WATCHING TV. SR UP X2,CALL LIGHT WITHIN REACH.
[2019-03-31] VITALS: BP 122/73
--- NOTE | 2019-03-31 01:39 | NUR ---
TYLENOL 650MG PO GIVEN FOR C/O BACK PAIN. CALL LIGHT WITHIN REACH.
[2019-03-31 04:00] VITALS: BP 114/69
--- NOTE | 2019-03-31 04:17 | NUR ---
PT RESTING WITH EYES CLOSED. RESP EVEN AND REGULAR. SR UP X2, CALL LIGHT WITHIN REACH.
--- NOTE | 2019-03-31 06:14 | NUR ---
VSS THROUGHOUT NIGHT. PT STATES TYLENOL HELPS TO CONTROL HIS PAIN. AM FSBS 105. NO COVERGE NEEDED. NEEDS MET; WILL CONTINUE TO MONITOR.
--- NOTE | 2019-03-31 07:30 | NUR ---
ALERT AND ORIENTED X4. SITTING UP ON SIDE OF BED. LT LEG PROSTHETIC ON. SINUS RHYTHM 94 ON TELEMETRY. DENIES ANY NEEDS AT THIS TIME. CONTINUE PLAN OF CARE AND SAFETY PRECAUTIONS.
[2019-03-31 08:36] VITALS: BP 137/77
[2019-03-31 10:18] LABS: BASOPHILS 0.4 % (0-2); EOSINOPHILS 1.8 % (0-7); HEMATOCRIT 26.2 % (42.0-54.0); HEMOGLOBIN 8.1 g/dL (13.5-17.5); IMMATURE GRANULOCYTES 0.2 % (0-5); LYMPHOCYTES 5.2 % (15-50); MCH 21.4 pg (26.0-34.0); MCHC 30.9 g/dL (31.0-37.0); MCV 69.3 fL (80.0-100.0); MEAN PLATELET VOLUME 8.3 fL (7.4-10.4); MONOCYTES 8.6 % (2-11); NEUTROPHILS 83.8 % (40-80); PLATELET COUNT 283 10x3/uL (130-400); RBC 3.78 10x6/uL (4.20-6.10); RDW 21.7 % (11.5-14.5); WBC 8.5 10x3/uL (4.8-10.8)
[2019-03-31 10:32] LABS: ALBUMIN 2.6 g/dL (3.4-5.0); ANION GAP 16.8 mmol/L (8-16); BILIRUBIN - TOTAL 0.51 mg/dL (0.2-1.3); CALCIUM 8.7 mg/dL (8.5-10.1); CARBON DIOXIDE 21.8 mmol/L (21.0-32.0); CREATININE - SERUM 2.8 mg/dL (0.6-1.3); POTASSIUM - SERUM 3.6 mmol/L (3.5-5.1); PROTEIN - SERUM 7.4 g/dL (6.4-8.2)
[2019-03-31 11:41] VITALS: BP 138/88
[2019-03-31] MEDS ORDERED: TOPROL XL25 MG PO (13:10)
--- NOTE | 2019-03-31 16:05 | NUR ---
ALERT AND ORIENTED X4. SITTING UP IN BED. DISCHARGE INSTRUCTIONS GIVEN VERBALLY AND WRITTEN. DISCHARGE PAPERS SIGNED ON CHART. DC LT AC IV TIP INTACT. SISTER ARRIVES FOR RIDE. ESCORT TO RIDE VIA WHEELCHAIR. REMAINS FREE FROM INJURY.
--- NOTE | 2019-03-31 18:20 | MORECARE ---
CASE MANAGEMENT DISCHARGE SUMMARY PATIENT: TERESO VILLARREAL UNIT: [id number] ADM DATE: 03/25/19 AGE: 69 : 50 SEX: M ROOM/BED: D.2122 AUTHOR: MERCEDEZ,DOC PHYSICIAN: REFERRING PHYSICIAN: EDITA EDWARDS MD DATE OF SERVICE: 03/31/19 Discharge Plan Patient Name: TERESO VILLARREAL Facility: [facility]:[place] : 1950 Planned Disposition: Home Anticipated Discharge Date: Discharge Date: 03/31/2019 Expected LOS: 0 Initial Reviewer: [email or web address] Initial Review Date: 03/26/2019 Generated: 03/31/19 7:20 pm DCP- Discharge Planning Updated by ZACHARY: Leo Mayo on 03/26/19 2:[address] Patient Name: TERESO VILLARREAL Admission Status: ER Accout number: [id number] Admission Date: 03-25-2019 : 1950 Admission Diagnosis:UNSPECIFIED ABDOMINAL PAIN Attending: EDITA EDWARDS Current LOS: 1 Anticipated DC Date: Planned Disposition: Home Primary Insurance: MEDICARE A & B Discharge Planning Comments: CM MET WITH PT IN ROOM TO DISCUSS DISCHARGE PLANNING AND NEEDS. PT REPORTS LIVING AT HOME INDEPENDENTLY AND ALONE. PT REPORTS HIS STEP DAD LIVES "ABOUT 100 YARDS AWAY" IF PT NEEDS ANYTHING AT HOME. PT HAS LEFT LOWER LEG PROSTHESIS; PT ALSO HAS TWO WALKERS THAT HE NO LONGER USES AND HAS NO MEDICAL EQUIPMENT PROVIDER PREFERENCE. PT HAS NO OUTSIDE SERVICES ASSISTING IN THE HOME. CM DISCUSSED AVAILABILITY OF HOME HEALTH, REHAB SERVICES AND MEDICAL EQUIPMENT. PT DENIES DISCHARGE NEEDS, REPORTS FAMILY WILL PICK HIM UP FOR DISCHARGE HOME. PT PLANS TO DISCHARGE HOME ALONE, FAMILY TO TRANSPORT. PT HAS NO ANTICIPATED DISCHARGE NEEDS AT THIS TIME. CM TO FOLLOW AND ASSIST IF NEEDED. Chief Accounting Officer: Leo Mayo DCPIA - Discharge Planning Initial Assessment Updated by [id number]: Leo Mayo on 03/26/19 3:41 pm * Is the patient Alert and Oriented? Yes * How many steps to enter\\exit or inside your home? * PCP DR. DE LEON [place] * Pharmacy [facility] OR [facility], [place] * Preadmission Environment Home Alone * ADLs Independent * Equipment Walker * Other Equipment HAS TWO WALKERS - NOT CURRENTLY USING LEFT LOWER LEG PROSTHESIS NO MEDICAL EQUIPMENT PROVIDER PREFERENCE * List name and contact numbers for known caregivers / representatives who currently or will assist patient after discharge: EKTA STEVE, DTR, * Verbal permission to speak to the caregivers and representatives has been obtained from the patient. N/A * Community resources currently utilized None * Please name any agencies selected above. NONE * Additional services required to return to the preadmission environment? No * Can the patient safely return to the preadmission environment? Yes * Has this patient been hospitalized within the prior 30 days at any hospital? No Coverage Notice Reviewer: [email or web address] Geo Vasquez Notice Issued Date-Time: 03/31/2019 14:00 Notice Type: IM Discharge Notice Notice Delivered To: Patient Relationship to Patient: Self Rural Carrier Name: Delivery Method: HAND - Hand Delivered Pilar Days: Prior Verbal Notification: Recipient Understood Notice: Yes Recipient Signature: Yes Med Rec Note Co-signed by Attending: Coverage Notice Comment: Last DP export: 03/26/19 2:48 pm Patient Name: TERESO VILLARREAL Page [phone] at 1820 All edits/amendments must be made on the electronic document DICTATION DATE: 03/31/191818 VISION REHABILITATION THERAPIST: ROB 03/31/191818 RPT#: [id number] DC DATE:03/31/19 STATUS: DIS IN [facility] [address] [place] [address] END OF REPORT
== END 2019-03-31 16:07 | disposition home or self-care (01) | DRG 391 ==
LOC: D.ER 22:55 → D.M2 03-25 01:39
PROVIDERS: Family Medicine; Internal Medicine Nephrology; Internal Medicine Pulmonary Disease; ADMIT Family Medicine; ATTEND Family Medicine
DX: K59.00 Constipation, unspecified (principal); I50.23 Acute on chronic systolic (congestive) heart failure; N17.9 Acute kidney failure, unspecified; I71.4 Abdominal aortic aneurysm, without rupture; I25.10 Atherosclerotic heart disease of native coronary artery without angina pectoris; I25.5 Ischemic cardiomyopathy; Z89.519 Acquired absence of unspecified leg below knee; I11.0 Hypertensive heart disease with heart failure; I27.20 Pulmonary hypertension, unspecified; E11.40 Type 2 diabetes mellitus with diabetic neuropathy, unspecified; E11.65 Type 2 diabetes mellitus with hyperglycemia; D50.9 Iron deficiency anemia, unspecified; E87.6 Hypokalemia; I83.019 Varicose veins of right lower extremity with ulcer of unspecified site

== ENCOUNTER 2019-04-03 04:20 | Inpatient (IN) | payer MEDICARE ==
[~2019-04-03 04:20] MED LIST changes: +TOPROL XL25 MG PO; +ULTRAM50 MG PO
[2019-04-03 05:21] LABS: BASOPHILS 0.2 % (0-2); HEMATOCRIT 28.3 % (42.0-54.0); HEMOGLOBIN 8.8 g/dL (13.5-17.5); IMMATURE GRANULOCYTES 0.2 % (0-5); LYMPHOCYTES 6.8 % (15-50); MCH 22.1 pg (26.0-34.0); MCHC 31.1 g/dL (31.0-37.0); MCV 70.9 fL (80.0-100.0); MEAN PLATELET VOLUME 8.5 fL (7.4-10.4); MONOCYTES 8.1 % (2-11); NEUTROPHILS 83.7 % (40-80); PLATELET COUNT 300 10x3/uL (130-400); RBC 3.99 10x6/uL (4.20-6.10); RDW 24.4 % (11.5-14.5); WBC 8.6 10x3/uL (4.8-10.8)
[2019-04-03 05:29] LABS: ALBUMIN 2.7 g/dL (3.4-5.0); ALKALINE PHOSPHATASE 178 U/L (46-116); ALT (SGPT) 17 U/L (10-68); BILIRUBIN - TOTAL 0.44 mg/dL (0.2-1.3); CALC OSMOLALITY 299 mosm/kg (275-300); CALCIUM 9.1 mg/dL (8.5-10.1); CARBON DIOXIDE 26.1 mmol/L (21.0-32.0); CHLORIDE - SERUM 104 mmol/L (98-107); CREATININE - SERUM 2.8 mg/dL (0.6-1.3); POTASSIUM - SERUM 4.2 mmol/L (3.5-5.1); PROTEIN - SERUM 7.4 g/dL (6.4-8.2); SODIUM 140 mmol/L (136-145); UREA NITROGEN 49 mg/dL (7-18); eGFR NON AFRICAN AMERICAN 24 mL/min (90-120)
[2019-04-03 05:31] LABS: INR 1.33 (0.85-1.17); PROTIME 15.9 SECONDS (11.6-15.0)
[2019-04-03 05:32] LABS: APTT 39.6 SECONDS (22.8-39.4)
--- NOTE | 2019-04-03 05:32 | NUR ---
PT GIVEN URINAL
[2019-04-03 05:37] LABS: GLUCOSE 247 mg/dL (74-106)
[2019-04-03 05:40] LABS: CKMB 1.9 U/L (0.0-3.6); CREATINE KINASE 39 UL (21-232); TROPONIN-I 0.018 ng/mL (0.000-0.060)
[2019-04-03 06:11] LABS: PRO BNP 57869 pg/mL (0-125)
[2019-04-03 08:44] VITALS: BP 160/92
[2019-04-03 09:24] VITALS: BP 160/92; BMI 23.4
[2019-04-03 11:40] VITALS: BP 158/94
[2019-04-03 13:55] VITALS: BMI 23.4
[2019-04-03 15:46] VITALS: BP 151/93
--- NOTE | 2019-04-03 19:00 | NUR ---
PATIENT SITTING UP ON SIDE OF BED. NO DISTRESS NOTED. NO COMPLAINTS AT THIS TIME.
[2019-04-03 20:00] VITALS: BP 127/76
[2019-04-04] VITALS: BP 117/66
--- NOTE | 2019-04-04 00:18 | NUR ---
PATIENT SITTING ON SIDE OF BED. PATIENT HAS NO COMPLAINTS AT THIS TIME. NO DISRESS NOTED.
[2019-04-04 04:00] VITALS: BP 112/71
[2019-04-04 05:51] LABS: ANION GAP 14.9 mmol/L (8-16); CALCIUM 8.9 mg/dL (8.5-10.1); CREATININE - SERUM 2.6 mg/dL (0.6-1.3); MAGNESIUM - SERUM 2.1 mg/dL (1.8-2.4); PHOSPHOROUS 3.9 mg/dL (2.5-4.9); POTASSIUM - SERUM 3.9 mmol/L (3.5-5.1)
[2019-04-04 06:02] LABS: BASOPHILS 0.2 % (0-2); EOSINOPHILS 1.9 % (0-7); HEMOGLOBIN 8.1 g/dL (13.5-17.5); IMMATURE GRANULOCYTES 0.2 % (0-5); LYMPHOCYTES 10.6 % (15-50); MCHC 31.2 g/dL (31.0-37.0); MCV 70.5 fL (80.0-100.0); MEAN PLATELET VOLUME 8.5 fL (7.4-10.4); MONOCYTES 10.3 % (2-11); NEUTROPHILS 76.8 % (40-80); PLATELET COUNT 281 10x3/uL (130-400); RBC 3.69 10x6/uL (4.20-6.10); RDW 24.8 % (11.5-14.5); WBC 8.4 10x3/uL (4.8-10.8)
--- NOTE | 2019-04-04 07:15 | NUR ---
AM ROUNDS COMPLETED. INTRODUCED MYSELF TO PT PRIMARY RN FOR TODAYS SHIFT. PT IS A&O SITTING UP ON EDGE OF BED DRINKING BLACK COFFEE. SHIFT ASSESSMENT COMPLETED. PT DENIES ANY CURRENT PAIN OR NEEDS AT THIS TIME. CL IN REACH. WILL CTM.
[2019-04-04 08:18] VITALS: BP 140/90
--- NOTE | 2019-04-04 09:31 | NUR ---
PT LYING BACK IN BED RESTING QUIETLY WATCHING TV. ATTEMPTED TO ELEVATED PTS R.LEG TO HELP REDUCE SWELLING HOWEVER HE OFTEN JUST HAS IT HANG OFF BED. NOTED A SCAB/SORE TO PTS R.CURRY/LEG AND HAD WOUND CARE GLANCE AT IT. WILL CLEAN WITH WOUND CLEANSER AND PAT DRY THEN COVER WITH DRSG. R.LEG IS VERY SHINY SWOLLEN AND RED. PERIPHERAL PULSES ARE INTACT. PT DENIES ANY PAIN WITH IT AND STATES ITS ACTUALLY GOING DOWN A LOT. STUDENT NURSE PROVIDED PTS MORNING MEDICATIONS. NO CURRENT NEEDS. WILL CTM.
--- NOTE | 2019-04-04 11:57 | NUR ---
FSBS 217. PROVIDED PT WITH 4 UNITS OF INSULIN PER SS. PT SITTING UP ON EDGE OF BED WAITING ON HIS LUNCH TRAY. PT DENIES ANY CURRENT PAIN OR NEEDS AT THIS TIME. CL IN REACH. WILL CTM.
--- NOTE | 2019-04-04 12:36 | MORECARE ---
CASE MANAGEMENT DISCHARGE SUMMARY PATIENT: TERESO VILLARREAL UNIT: [id number] ADM DATE: 04/03/19 AGE: 69 : 50 SEX: M ROOM/BED: D.2111 AUTHOR: CELESTINO NEWSOME PHYSICIAN: REFERRING PHYSICIAN: HARI FELIX MD DATE OF SERVICE: 04/04/19 Discharge Plan Patient Name: TERESO VILLARREAL [facility] [facility] 1950 Planned Disposition: Other Type of Facility Anticipated Discharge Date: Discharge Date: Expected LOS: Initial Reviewer: [email or web address] Initial Review Date: 04/03/2019 Generated: 04/04/19 1:35 pm Patient Name: TERESO VILLARREAL Page 35018 at 1236 All edits/amendments must be made on the electronic document DICTATION DATE: 04/04/19 1235 HEAD OF TRAINING AND DEVELOPMENT: ROB 04/04/19 1235 RPT#: [id number] DC DATE: STATUS: ADM IN [facility] [address] [place] [address] END OF REPORT
[2019-04-04 12:39] VITALS: BP 137/76
--- NOTE | 2019-04-04 13:08 | MORECARE ---
CASE MANAGEMENT DISCHARGE SUMMARY PATIENT: TERESO VILLARREAL UNIT: [id number] ADM DATE: 04/03/19 AGE: 69 : 50 SEX: M ROOM/BED: D.2111 AUTHOR: CELESTINO NEWSOME PHYSICIAN: REFERRING PHYSICIAN: HARI FELIX MD DATE OF SERVICE: 04/04/19 Discharge Plan Patient Name: TERESO VILLARREAL [facility] [facility] 1950 Planned Disposition: Other Type of Facility Anticipated Discharge Date: Discharge Date: Expected LOS: Initial Reviewer: [email or web address] Initial Review Date: 04/03/2019 Generated: 04/04/19 2:08 pm DCPIA - Discharge Planning Initial Assessment Updated by [id number]: Bisi Dunn on 04/04/19 1:06 pm * Is the patient Alert and Oriented? Yes * PCP DR Renetta Orantes * Pharmacy [place] or [facility] on [facility] * Preadmission Environment Home Alone * ADLs Independent * Equipment Walker * Other Equipment Denies any additional DME * List name and contact numbers for known caregivers / representatives who currently or will assist patient after discharge: Cira Luna * Please name any agencies selected above. Has had [facility] previously * Additional services required to return to the preadmission environment? Yes * Can the patient safely return to the preadmission environment? Yes * Has this patient been hospitalized within the prior 30 days at any hospital? Yes Last DP export: 04/04/19 11:35 a Patient Name: TERESO VILLARREAL Page 73666 at 1308 All edits/amendments must be made on the electronic document DICTATION DATE: 04/04/19 1308 IMPORT/EXPORT FREIGHT FORWARDER: ROB 04/04/19 1308 RPT#: [id number] DC DATE: STATUS: ADM IN [facility] [address] [place] [address] END OF REPORT
--- NOTE | 2019-04-04 13:30 | MORECARE ---
CASE MANAGEMENT DISCHARGE SUMMARY PATIENT: TERESO VILLARREAL UNIT: [id number] ADM DATE: 04/03/19 AGE: 69 : 50 SEX: M ROOM/BED: D.2111 AUTHOR: MERCEDEZ,DOC PHYSICIAN: REFERRING PHYSICIAN: HARI FELIX MD DATE OF SERVICE: 04/04/19 Discharge Plan Patient Name: TERESO VILLARREAL Facility: [facility]:[place] : 1950 Planned Disposition: Other Type of Facility Anticipated Discharge Date: Discharge Date: Expected LOS: Initial Reviewer: [email or web address] Initial Review Date: 04/03/2019 Generated: 04/04/19 2:30 pm Comments DCP- Discharge Planning Updated by [email or web address]: Bisi Dunn on 04/04/19 12:[address] CM RECEIVED REFERRAL THIS AM. VISITED WITH THE PATIENT AT THE BEDSIDE. HE STATES HE IS FEELING BETTER. HAS BUMEX DRIP. HE IS ON ROOM AIR. STATED HE WAS SUPPOSE TO HAVE A NEBULIZER ORDERED WHEN HE WAS IN THE ER PREVIOUSLY. HE STATED HE WAS SHORT OF BREATH, COULD NOT GET ANY SLEEP AND HAD ABD PAIN THEREFORE CAME TO THE ER. I REVIEWED MY ROLE. HE IS AWARE OF CM FROM PREVIOUS ADMIT. GAVE PERMISSION TO CONTINUE THE INTERVIEW. HE LIVES ALONE. HIS FATHER LIVES NEARBY WELL HIS DAUGHTER, EKTA STEVE. HE PLANS TO RETURN TO HIS TENT ON [facility] AT DISCHARGE. HE IS CAMPING WITH HIS FAMILY. HE DOEW NOT FEEL HE NEEDS ANY SERVICES. PCP- [facility]- [facility] OR [facility] DME- [facility] DENIES ANY ADDITIONAL DME PATIENT STATED HE OBTAINED HIS MEDICATIONS. HAD F/U APPOINTMENTS CM TO FOLLOW TO ASSIST WITH DISCHARGE PLANNING. DCPIA - Discharge Planning Initial Assessment Updated by [id number]: Bisi Dunn on 04/04/19 1:06 pm * Is the patient Alert and Oriented? Yes * PCP DR Jackson [place] * Pharmacy [place] or [facility] * Preadmission Environment Home Alone * ADLs Independent * Equipment Walker * Other Equipment Denies any additional DME * List name and contact numbers for known caregivers / representatives who currently or will assist patient after discharge: Ekta Steve * Please name any agencies selected above. Has had [facility] previously * Additional services required to return to the preadmission environment? Yes * Can the patient safely return to the preadmission environment? Yes * Has this patient been hospitalized within the prior 30 days at any hospital? Yes Last DP export: 04/04/19 12:08 p Patient Name: TERESO VILLARREAL Page 67325 at 1330 All edits/amendments must be made on the electronic document DICTATION DATE: 04/04/191329 PAYROLL ASSISTANT: ROB 04/04/190 RPT#: [id number] DC DATE: STATUS: ADM IN [facility] [address] [place] [address] END OF REPORT
--- NOTE | 2019-04-04 16:33 | NUR ---
FSBS 227 PROVIDED PT WITH 4 UNITS OF INSULIN PER SS. PT SITTING UP ON EDGE OF BED RESTING QUIETLY. BUMEX DRIP STOPPED ORDERED AND ORAL FORM GIVEN. EMPTIED PTS URINAL OF 800CC CLEAR YELLOW URINE. PT WAITING OF DINNER AND WATCHING TV DENIES ANY CURRENT PAIN OR NEEDS AT THIS TIME. WILL CTM.
[2019-04-04 16:50] VITALS: BP 131/72
--- NOTE | 2019-04-04 19:42 | NUR ---
PATIENT LAYING IN BED. EYES CLOSED, CHEST RISING AND FALLING. NO DISTRESS NOTED.
[2019-04-04 21:04] VITALS: BP 123/71
[2019-04-05 01:29] VITALS: BP 140/83
--- NOTE | 2019-04-05 03:30 | NUR ---
PATIENT SITTING UP ON SIDE OF BED. NO COMPLAINTS AT THIS TIME. NO DISTRESS NOTED.
--- NOTE | 2019-04-05 04:28 | NUR ---
PATIENT TRANSFERED TO ICU VIA BED WITH HOSPITAL STAFF.
[2019-04-05 04:41] LABS: BASOPHILS 0.3 % (0-2); EOSINOPHILS 1.8 % (0-7); HEMOGLOBIN 8.8 g/dL (13.5-17.5); IMMATURE GRANULOCYTES 0.2 % (0-5); MCHC 31.4 g/dL (31.0-37.0); MEAN PLATELET VOLUME 8.8 fL (7.4-10.4); MONOCYTES 9.6 % (2-11); NEUTROPHILS 81.1 % (40-80); PLATELET COUNT 302 10x3/uL (130-400); RDW 25.2 % (11.5-14.5); WBC 9.1 10x3/uL (4.8-10.8)
[2019-04-05 04:57] LABS: ALBUMIN 2.7 g/dL (3.4-5.0); ANION GAP 12.8 mmol/L (8-16); BILIRUBIN - TOTAL 0.65 mg/dL (0.2-1.3); CALCIUM 9.1 mg/dL (8.5-10.1); CARBON DIOXIDE 27.5 mmol/L (21.0-32.0); CREATININE - SERUM 2.7 mg/dL (0.6-1.3); MAGNESIUM - SERUM 1.9 mg/dL (1.8-2.4); POTASSIUM - SERUM 4.3 mmol/L (3.5-5.1); PROTEIN - SERUM 7.5 g/dL (6.4-8.2)
--- NOTE | 2019-04-05 06:12 | NUR ---
I have reviewed this patient and I concur with the Shift Assessment completed by the Licensed Practical Nurse today this shift.
[2019-04-05 06:22] VITALS: BP 121/56
--- NOTE | 2019-04-05 07:30 | NUR ---
RECEIVED A/A/OX4. SITTING ON SIDE OF BED AND DENIES ANY PAIN OR DISCOMFORT. NO REQUESTS VOICED. ASSESSMENT COMPLETED. RIGHT FOOT COLD TO TOUCH AND NO PULSES PALPABLE BUT WERE DETECTED WITH DOPPLER. DRESSING TO RIGHT LEG C/D/I. WILL CONTINUE POC.
--- NOTE | 2019-04-05 10:49 | MORECARE ---
CASE MANAGEMENT DISCHARGE SUMMARY PATIENT: TERESO VILLARREAL UNIT: [id number] ADM DATE: 04/03/19 AGE: 69 : 50 SEX: M ROOM/BED: D.2111 AUTHOR: MERCEDEZ,DOC PHYSICIAN: REFERRING PHYSICIAN: HARI FELIX MD DATE OF SERVICE: 04/05/19 Discharge Plan Patient Name: TERESO VILLARREAL Facility: [facility]:[place] : 1950 Planned Disposition: Other Type of Facility Anticipated Discharge Date: Discharge Date: Expected LOS: Initial Reviewer: [email or web address] Initial Review Date: 04/03/2019 Generated: 04/05/19 11:48 am Comments DCP- Discharge Planning Updated by [id number]: Bisi Dunn on 04/05/19 9:[address] CM SPOKE PERSONALLY TO THE WOUND CARE NURSE REGARDING CONSULT. DCP- Discharge Planning Updated by [email or web address]: Bisi Dunn on 04/04/19 12:[address] CM RECEIVED REFERRAL THIS AM. VISITED WITH THE PATIENT AT THE BEDSIDE. HE STATES HE IS FEELING BETTER. HAS BUMEX DRIP. HE IS ON ROOM AIR. STATED HE WAS SUPPOSE TO HAVE A NEBULIZER ORDERED WHEN HE WAS IN THE ER PREVIOUSLY. HE STATED HE WAS SHORT OF BREATH, COULD NOT GET ANY SLEEP AND HAD ABD PAIN THEREFORE CAME TO THE ER. I REVIEWED MY ROLE. HE IS AWARE OF CM FROM PREVIOUS ADMIT. GAVE PERMISSION TO CONTINUE THE INTERVIEW. HE LIVES ALONE. HIS FATHER LIVES NEARBY WELL HIS DAUGHTER, EKTA STEVE. HE PLANS TO RETURN TO HIS TENT ON [facility] AT DISCHARGE. HE IS CAMPING WITH HIS FAMILY. HE DOEW NOT FEEL HE NEEDS ANY SERVICES. PCP- [facility]- [facility] OR [facility] DME- WALKER DENIES ANY ADDITIONAL DME PATIENT STATED HE OBTAINED HIS MEDICATIONS. HAD F/U APPOINTMENTS CM TO FOLLOW TO ASSIST WITH DISCHARGE PLANNING. DCPIA - Discharge Planning Initial Assessment Updated by [id number]: Bisi Dunn on 04/04/19 1:06 pm * Is the patient Alert and Oriented? Yes * PCP DR Jackson [place] * Pharmacy [place] or [facility] * Preadmission Environment Home Alone * ADLs Independent * Equipment Walker * Other Equipment Denies any additional DME * List name and contact numbers for known caregivers / representatives who currently or will assist patient after discharge: Ekta Steve * Please name any agencies selected above. Has had [facility] previously * Additional services required to return to the preadmission environment? Yes * Can the patient safely return to the preadmission environment? Yes * Has this patient been hospitalized within the prior 30 days at any hospital? Yes Last DP export: 04/04/19 12:30 p Patient Name: TERESO VILLARREAL Page [id number] at 1049 All edits/amendments must be made on the electronic document DICTATION DATE: 04/05/191047 TROLLEY CLEANER: ROB 04/05/198 RPT#: [id number] DC DATE: STATUS: ADM IN [facility] [address] [place] [address] END OF REPORT
--- NOTE | 2019-04-05 11:27 | NUR ---
I have reviewed this patient and I concur with the Shift Assessment completed by the Licensed Practical Nurse today this shift.
[2019-04-05 11:45] VITALS: BP 134/84
--- NOTE | 2019-04-05 12:48 | NUR ---
Pt has abrasion on left knee where his prosthetic rubs. He is putting calmoseptine cream on area. Provided a mepilex bordered dressing (3x3) for additional protection.
--- NOTE | 2019-04-05 14:20 | NUR ---
DISCHARGE INSTRUCTIONS REVIEWED WITH PT AND VERBALIZES UNDERSTANDING WITH NO QUESTIONS. DRESSING TO RIGHT LEG CHANGED AND TOLERATED WELL. SL LOCK REMOVED WITH CATH TIP INTACT. LEFT FLOOR VIA W/C WITH ALL PERSONAL BELONGINGS AND LEFT FACILITY VIA PRIVATE VEHICLE WITH A FRIEND. RX SENT TO HIS PHARMACY BY Katarzyna JANG APRN FOR HIS BUMEX.
[2019-04-05] MEDS ORDERED: BUMEX2 MG PO (14:37)
--- NOTE | 2019-04-05 19:23 | MORECARE ---
CASE MANAGEMENT DISCHARGE SUMMARY PATIENT: TERESO VILLARREAL UNIT: [id number] ADM DATE: 04/03/19 AGE: 69 : 50 SEX: M ROOM/BED: D.0919 AUTHOR: MERCEDEZ,DOC PHYSICIAN: REFERRING PHYSICIAN: HARI FELIX MD DATE OF SERVICE: 04/05/19 Discharge Plan Patient Name: TERESO VILLARREAL Facility: [facility]:[place] : 1950 Planned Disposition: Other Type of Facility Anticipated Discharge Date: Discharge Date: 04/05/2019 Expected LOS: Initial Reviewer: [email or web address] Initial Review Date: 04/03/2019 Generated: 04/05/19 8:23 pm Comments DCP- Discharge Planning Updated by [email or web address]: Bisi Dunn on 04/05/19 6:[address] LATE ENTRY 1230 PATIENT WAS SEEN BY WOUND CARE NURSING. PLS REFERENCE HER NOTE. DR FELIX ORDERED HOME HEALTH. CM DISCUSSED W/ THE PATIENT. HE STATED HE WOULD ACCEPT. HE IS STILL PLANNING TO GO [facility]. PATIENT CHOICE FORM SIGNED FOR [facility]. DISCHARGE IMM EXPLAINED AND SIGNATURE OBTAINED. PATIENT SMILLING AND ANXIOUS TO BE DISCHARGED. TC TO [facility]. FAXED REFERRAL. PLAN FOR THE PATIENT TO BE SEEN ON MONDAY. CM RECEIVED MESSAGE FROM PURCHASING ASSOCIATE THAT HOME HEALTH HAD BEEN CANCELLED BY DR FELIX. WOUND CARE WAS NOT NEEDED. TC TO [facility]. PATIENT ADVISED BY NURSE. DCP- Discharge Planning Updated by [id number]: Bisi Dunn on 04/05/19 9:[address] CM SPOKE PERSONALLY TO THE WOUND CARE NURSE REGARDING CONSULT. DCP- Discharge Planning Updated by [id number]: Bisi Dunn on 04/04/19 12:[address] CM RECEIVED REFERRAL THIS AM. VISITED WITH THE PATIENT AT THE BEDSIDE. HE STATES HE IS FEELING BETTER. HAS BUMEX DRIP. HE IS ON ROOM AIR. STATED HE WAS SUPPOSE TO HAVE A NEBULIZER ORDERED WHEN HE WAS IN THE ER PREVIOUSLY. HE STATED HE WAS SHORT OF BREATH, COULD NOT GET ANY SLEEP AND HAD ABD PAIN THEREFORE CAME TO THE ER. I REVIEWED MY ROLE. HE IS AWARE OF CM FROM PREVIOUS ADMIT. GAVE PERMISSION TO CONTINUE THE INTERVIEW. HE LIVES ALONE. HIS FATHER LIVES NEARBY WELL HIS DAUGHTER, KETA STEVE. HE PLANS TO RETURN TO HIS TENT ON [facility] AT DISCHARGE. HE IS CAMPING WITH HIS FAMILY. HE DOEW NOT FEEL HE NEEDS ANY SERVICES. PCP- DR [facility]- [facility] OR [facility] ON [facility] DME- WALKER DENIES ANY ADDITIONAL DME PATIENT STATED HE OBTAINED HIS MEDICATIONS. HAD F/U APPOINTMENTS CM TO FOLLOW TO ASSIST WITH DISCHARGE PLANNING. DCPIA - Discharge Planning Initial Assessment Updated by [email or web address]: Bisi Dunn on 04/04/19 1:06 pm * Is the patient Alert and Oriented? Yes * PCP DR Renetta Orantes * Pharmacy [place] or [facility] on [facility] * Preadmission Environment Home Alone * ADLs Independent * Equipment Walker * Other Equipment Denies any additional DME * List name and contact numbers for known caregivers / representatives who currently or will assist patient after discharge: Ekta Steve * Please name any agencies selected above. Has had [facility] previously * Additional services required to return to the preadmission environment? Yes * Can the patient safely return to the preadmission environment? Yes * Has this patient been hospitalized within the prior 30 days at any hospital? Yes Last DP export: 04/05/19 9:49 a Patient Name: TERESO VILLARREAL Page [id number] at 1923 All edits/amendments must be made on the electronic document DICTATION DATE: 04/05/191922 CREATIVE ENGAGEMENT DIRECTOR: ROB 04/05/191922 RPT#: [id number] DC DATE:04/05/19 STATUS: DIS IN [facility] [address] [facility] [address] [place], [place] [address] END OF REPORT
--- NOTE | 2019-04-08 08:18 | MORECARE ---
CASE MANAGEMENT DISCHARGE SUMMARY PATIENT: TERESO VILLARREAL UNIT: [id number] ADM DATE: 04/03/19 AGE: 69 : 50 SEX: M ROOM/BED: D.9178 AUTHOR: MERCEDEZ,DOC PHYSICIAN: REFERRING PHYSICIAN: HARI FELIX MD DATE OF SERVICE: 04/08/19 Discharge Plan Patient Name: TERESO VILLARREAL Facility: [facility]:[place] : 1950 Planned Disposition: Other Type of Facility Anticipated Discharge Date: 04/05/19 Discharge Date: 04/05/2019 Expected LOS: 2 Initial Reviewer: [email or web address] Initial Review Date: 04/03/2019 Generated: 04/08/19 9:18 am Comments DCP- Discharge Planning Updated by [id number]: Bisi Dunn on 04/05/19 6:[address] LATE ENTRY 1230 PATIENT WAS SEEN BY WOUND CARE NURSING. PLS REFERENCE HER NOTE. DR FELIX ORDERED HOME HEALTH. CM DISCUSSED W/ THE PATIENT. HE STATED HE WOULD ACCEPT. HE IS STILL PLANNING TO GO [facility]. PATIENT CHOICE FORM SIGNED FOR [facility]. DISCHARGE IMM EXPLAINED AND SIGNATURE OBTAINED. PATIENT SMILLING AND ANXIOUS TO BE DISCHARGED. TC TO [facility]. FAXED REFERRAL. PLAN FOR THE PATIENT TO BE SEEN ON MONDAY. CM RECEIVED MESSAGE FROM WASTE MACHINE OFFBEARER THAT HOME HEALTH HAD BEEN CANCELLED BY DR FELIX. WOUND CARE WAS NOT NEEDED. TC TO [facility]. PATIENT ADVISED BY NURSE. DCP- Discharge Planning Updated by [id number]: Bisi Dunn on 04/05/19 9:[address] CM SPOKE PERSONALLY TO THE WOUND CARE NURSE REGARDING CONSULT. DCP- Discharge Planning Updated by [id number]: Bisi Dunn on 04/04/19 12:[address] CM RECEIVED REFERRAL THIS AM. VISITED WITH THE PATIENT AT THE BEDSIDE. HE STATES HE IS FEELING BETTER. HAS BUMEX DRIP. HE IS ON ROOM AIR. STATED HE WAS SUPPOSE TO HAVE A NEBULIZER ORDERED WHEN HE WAS IN THE ER PREVIOUSLY. HE STATED HE WAS SHORT OF BREATH, COULD NOT GET ANY SLEEP AND HAD ABD PAIN THEREFORE CAME TO THE ER. I REVIEWED MY ROLE. HE IS AWARE OF CM FROM PREVIOUS ADMIT. GAVE PERMISSION TO CONTINUE THE INTERVIEW. HE LIVES ALONE. HIS FATHER LIVES NEARBY WELL HIS DAUGHTER, EKTA STEVE. HE PLANS TO RETURN TO HIS TENT ON [facility] AT DISCHARGE. HE IS CAMPING WITH HIS FAMILY. HE DOEW NOT FEEL HE NEEDS ANY SERVICES. PCP- DR [facility]- [facility] OR [facility] ON [facility] DME- WALKER DENIES ANY ADDITIONAL DME PATIENT STATED HE OBTAINED HIS MEDICATIONS. HAD F/U APPOINTMENTS CM TO FOLLOW TO ASSIST WITH DISCHARGE PLANNING. DCPIA - Discharge Planning Initial Assessment Updated by [id number]: Bisi Dunn on 04/04/19 1:06 pm * Is the patient Alert and Oriented? Yes * PCP DR Renetta Orantes * Pharmacy [place] or [facility] on [facility] * Preadmission Environment Home Alone * ADLs Independent * Equipment Walker * Other Equipment Denies any additional DME * List name and contact numbers for known caregivers / representatives who currently or will assist patient after discharge: Ekta Steve * Please name any agencies selected above. Has had [facility] previously * Additional services required to return to the preadmission environment? Yes * Can the patient safely return to the preadmission environment? Yes * Has this patient been hospitalized within the prior 30 days at any hospital? Yes Last DP export: 04/05/19 6:23 p Patient Name: TERESO VILLARREAL Page 06174 at 0818 All edits/amendments must be made on the electronic document DICTATION DATE: 04/08/19817 AIRCRAFT CLEANING SUPERVISOR: ROB 04/08/19817 RPT#: [id number] DC DATE:04/05/19 STATUS: DIS IN [facility] [address] [place] [address] END OF REPORT
== END 2019-04-05 15:03 | disposition home or self-care (01) | DRG 291 ==
LOC: D.ER 04:20 → D.M2 06:20
PROVIDERS: Family Medicine; ADMIT Family Medicine; ATTEND Family Medicine
DX: I11.0 Hypertensive heart disease with heart failure (principal); J96.01 Acute respiratory failure with hypoxia; N17.9 Acute kidney failure, unspecified; I50.9 Heart failure, unspecified; D50.9 Iron deficiency anemia, unspecified; E11.65 Type 2 diabetes mellitus with hyperglycemia; I25.10 Atherosclerotic heart disease of native coronary artery without angina pectoris; I27.21 Secondary pulmonary arterial hypertension; I83.019 Varicose veins of right lower extremity with ulcer of unspecified site; E11.51 Type 2 diabetes mellitus with diabetic peripheral angiopathy without gangrene; K59.09 Other constipation

== ENCOUNTER 2019-04-10 22:25 | Inpatient (IN) | payer MEDICARE ==
[~2019-04-10] VITALS: Ht 180.3 cm; Wt 92.7 kg
[2019-04-10] MEDS ORDERED: BENTYL10 MG PO (22:30)
[2019-04-10 22:55] LABS: BASOPHILS 0.2 % (0-2); EOSINOPHILS 0.2 % (0-7); HEMATOCRIT 25.3 % (42.0-54.0); HEMOGLOBIN 7.9 g/dL (13.5-17.5); IMMATURE GRANULOCYTES 0.2 % (0-5); LYMPHOCYTES 4.1 % (15-50); MCH 22.4 pg (26.0-34.0); MCHC 31.2 g/dL (31.0-37.0); MCV 71.7 fL (80.0-100.0); MEAN PLATELET VOLUME 8.4 fL (7.4-10.4); MONOCYTES 6.5 % (2-11); NEUTROPHILS 88.8 % (40-80); PLATELET COUNT 349 10x3/uL (130-400); RBC 3.53 10x6/uL (4.20-6.10); RDW 26.4 % (11.5-14.5); WBC 16.2 10x3/uL (4.8-10.8)
[2019-04-10 23:12] LABS: INR 1.39 (0.85-1.17); PROTIME 16.5 SECONDS (11.6-15.0)
[2019-04-10 23:18] LABS: ALBUMIN 2.3 g/dL (3.4-5.0); ANION GAP 15.1 mmol/L (8-16); BILIRUBIN - TOTAL 0.45 mg/dL (0.2-1.3); CALCIUM 8.4 mg/dL (8.5-10.1); CARBON DIOXIDE 25.3 mmol/L (21.0-32.0); CREATININE - SERUM 3.5 mg/dL (0.6-1.3); MAGNESIUM - SERUM 2.1 mg/dL (1.8-2.4); POTASSIUM - SERUM 4.4 mmol/L (3.5-5.1); PROTEIN - SERUM 6.7 g/dL (6.4-8.2)
[2019-04-11] VITALS (22 sets, daily range): BP systolic 108–141; BP diastolic 52–89; Ht 180.3 cm; Wt 92.7 kg
--- NOTE | 2019-04-11 00:20 | NUR ---
Patient arrived to ICU via stretcher from ER, 1 unit PRBC initiated. Immediately sent to Nuclear med with RN present for bleeding scan.
--- NOTE | 2019-04-11 00:50 | NUR ---
Patient returned to 2311 and connected to monitor. Unable to complete scan due to patient refusal, will notify physician. Assessment completed per flowsheet, patient AO x4. S1/S2 noted Sinus Tach on telemetry with HR 109, rythmic and regular. Breathing is shallow on room air with O2 sat 92%, lung sounds clear bilateral upper and mid with diminished lower. Abdomen is distended/firm with bowel sounds very hypoactive x4, tender. Patient urinates without difficulty, 400ml clear yellow urine noted. 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 C/O pain 7/10 abdominal post PRN medication, repositioned with no stated relief. No further needs at this time, see flowsheet for details. All VSS and will continue to monitor.
--- NOTE | 2019-04-11 01:10 | NUR ---
Stu FIELD at bedside to discuss need for scan with patient, patient agreed to scan if "you can get this pain under control". Called Nuclear Med to inform, stated a delayed scan is possible but patient cannot de dosed again this quickly. Informed Stu, confirmed scan to be done CINTHYA.
--- NOTE | 2019-04-11 02:50 | NUR ---
Patient off unit to Nuclear [facility], Anesthesia called in to sedate patient for procedure. Bleeding scan to be performed under anesthesia, consents signed. Rn to accompany, will continue to monitor.
--- NOTE | 2019-04-11 04:00 | NUR ---
Reassessment completed per flowsheet, patient resturned to 2311 from Nuclear Med and positioned in bed. Patient slightly drowsy from sedation, awakens to voice and follows instructions. S1/S2 noted Sinus Tach on telemetry with HR 103, rythmic and regular. Breathing is shallow on room air with O2 sat 95%, lung sounds clear bilateral upper and mid with diminished lower. Abdomen is distended/firm with bowel sounds very hypoactive x4, tender. No bloody BM noted at this time, urinates w/o assist. 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 No further needs at this time, see flowsheet for details. All VSS and will continue to monitor.
[2019-04-11 04:33] LABS: HEMATOCRIT 23.6 % (42.0-54.0); HEMOGLOBIN 7.6 g/dL (13.5-17.5)
[2019-04-11 04:47] LABS: ALBUMIN 2.1 g/dL (3.4-5.0); ANION GAP 15.7 mmol/L (8-16); BILIRUBIN - TOTAL 0.65 mg/dL (0.2-1.3); CALCIUM 8.2 mg/dL (8.5-10.1); CREATININE - SERUM 3.3 mg/dL (0.6-1.3); PHOSPHOROUS 5.5 mg/dL (2.5-4.9); POTASSIUM - SERUM 4.7 mmol/L (3.5-5.1); PROTEIN - SERUM 6.1 g/dL (6.4-8.2)
[2019-04-11 05:00] LABS: INR 1.52 (0.85-1.17); PROTIME 17.7 SECONDS (11.6-15.0)
--- NOTE | 2019-04-11 05:00 | NUR ---
Patient up to commode at bedside per request, assisted by RN. CLear yellow urine noted, no blood noted at this time. All VSS and will continue to monitor.
--- NOTE | 2019-04-11 08:32 | NUR ---
0700 REPORT RECEIVED PATIENT UP ON BEDSIDE COMMODE PRBC UNIT INFUSING VOIDED WITHOUT DIFFICULTY NO BM NOTED ASSISTED BACK TO BED URINAL PLACED AT BED SIDE REMAINS NPO VOICE CONSULT COMPLETTE ASSESSMENT COMPLETE
[2019-04-11 10:35] LABS: BASOPHILS 0.1 % (0-2); EOSINOPHILS 0 % (0-7); IMMATURE GRANULOCYTES 0.2 % (0-5); LYMPHOCYTES 2.1 % (15-50); MCH 24.3 pg (26.0-34.0); MCHC 32.4 g/dL (31.0-37.0); MEAN PLATELET VOLUME 8.3 fL (7.4-10.4); MONOCYTES 3.5 % (2-11); NEUTROPHILS 94.1 % (40-80); RBC 4.08 10x6/uL (4.20-6.10); RDW 24.6 % (11.5-14.5); WBC 16.4 10x3/uL (4.8-10.8)
[2019-04-11 10:38] LABS: HEMATOCRIT 30.6 % (42.0-54.0); HEMOGLOBIN 9.9 g/dL (13.5-17.5); PLATELET COUNT 239 10x3/uL (130-400)
[2019-04-11 16:27] LABS: HEMATOCRIT 31.3 % (42.0-54.0); HEMOGLOBIN 10.1 g/dL (13.5-17.5)
--- NOTE | 2019-04-11 19:00 | NUR ---
REPORT RECIEVED FROM CHANA KENNEDY. PT RESTING IN BED WITH EYES CLOSED RR EVEN AND UNLABORED. NO S/S OF DISTRESS AT THIS TIME. RLE SWOLLEN, RED, WHEEPING, WITH SORES. LEG IS CLEAN AND ELEVATED. BED LOW CALL LIGHT WITHIN REACH SIDE RAILS UP X2. WILL CONTINUE TO MONITOR.
--- NOTE | 2019-04-11 19:30 | NUR ---
PT DAUGHTER CALLED TO CHECK IN. PT CONFIRMED PASSWORD OF "CANDIDO." WILL CONTINUE TO MONITOR.
--- NOTE | 2019-04-11 21:00 | NUR ---
PT SITTING UP ON SIDE OF BED USING URINAL. 200ML OF OUTPUT RECORDED. LINENS CHANGED AT THIS TIME. BLACK REDISH COLORED STOOL ON SHEETS. PT ALERT AND ORIENTED X4 WITH WEAKNESS. VITALS STABLE AT THIS TIME. BED LOW CALL LIGHT WITHIN REACH. WILL CONTINUE TO MONITOR
--- NOTE | 2019-04-11 22:41 | NUR ---
0900 REMAINS NPO MEDS GIVEN ONLY WITH SIPS OF WATER
--- NOTE | 2019-04-11 22:42 | NUR ---
PT COMPLAINS OF PAIN 8/10 IN BACK. PRN PAIN MEDICATION GIVEN. PT ALERT AND ORIENTED X4 VITALS STABLE AT THIS TIME. BED LOW CALL LIGHT WITHIN REACH. WILL CONTINUE TO MONITOR.
--- NOTE | 2019-04-11 22:43 | NUR ---
1700 VOICE AT BEDSIDE NEW ORDERS NOTED
--- NOTE | 2019-04-11 22:43 | NUR ---
1500 WAITING ON VOICE TO ROUND ON PATIENT VOIDS IN URINAL WHILE SITTING UP ON BEDSIDE
--- NOTE | 2019-04-11 23:00 | NUR ---
PT RESTING COMFORTABLY IN BED WITH EYES CLOSED. PT RR EVEN AND UNLABORED. VITALS STABLE AT THIS TIME. NO S/S OF DISTRESS. BED LOW CALL LIGHT WITHIN REACH. WILL CONTINUE TO MONITOR.
[2019-04-11 23:22] LABS: HEMOGLOBIN 9.8 g/dL (13.5-17.5)
[2019-04-12] VITALS (27 sets, daily range): BP systolic 102–167; BP diastolic 75–119
--- NOTE | 2019-04-12 | NUR ---
PT RESTING IN BED WITH EYES CLOSED RR EVEN AND UNLABORED. VITALS STABLE. NO S/S OF DISTRESS. BED LOW SIDE RAILS UP X2. WILL CONTINUE TO MONITOR.
--- NOTE | 2019-04-12 01:02 | NUR ---
CHANGED PT'S LINENS THEY WERE SOAKED IN RED BROWNISH FLUID BOWEL MOVEMENT. SPKOKE WITH [facility] CHARGE NURSE STAT H&H ORDERED. VITALS STABLE. BED LOW CALL LIGHT WITHIN REACH. WILL CONTINUE TO MONITOR.
--- NOTE | 2019-04-12 01:37 | NUR ---
ASSISTED PT TO BEDSIDE COMMODE. CALL LIGHT WITHIN REACH.
[2019-04-12 01:43] LABS: HEMATOCRIT 30.2 % (42.0-54.0); HEMOGLOBIN 10.1 g/dL (13.5-17.5)
--- NOTE | 2019-04-12 02:00 | NUR ---
PT COMPLAINS OF 8/10 PAIN IN BACK. PRN PAIN MEDICATION GIVEN. VITALS STABLE. WILL CONTINUE TO MONITOR.
--- NOTE | 2019-04-12 04:00 | NUR ---
ASSISTED PT TO SIDE OF BED TO URINATE. PT IS ALERT AND ORIENTED X4. PT COMPLAINS OF PAIN 8/10 IN BACK. VITALS STABLE. BED LOW CALL LIGHT WITHIN REACH. WILL CONTINUE TO MONITOR.
[2019-04-12 05:09] LABS: HEMATOCRIT 29.1 % (42.0-54.0); HEMOGLOBIN 9.5 g/dL (13.5-17.5)
[2019-04-12 05:36] LABS: ALBUMIN 2.5 g/dL (3.4-5.0); ANION GAP 17.3 mmol/L (8-16); BILIRUBIN - TOTAL 0.9 mg/dL (0.2-1.3); CALCIUM 8.8 mg/dL (8.5-10.1); CARBON DIOXIDE 24.9 mmol/L (21.0-32.0); CREATININE - SERUM 3.1 mg/dL (0.6-1.3); POTASSIUM - SERUM 4.2 mmol/L (3.5-5.1)
--- NOTE | 2019-04-12 05:59 | NUR ---
I CONCUR WITH WET MACHINE CUTTER ASSESSMENT
--- NOTE | 2019-04-12 06:15 | NUR ---
COLLECTED URINE SPECIMAN AND SENT TO LAB. WILL CONTINUE TO MONITOR.
[2019-04-12 07:38] LABS: APPEARANCE CLEAR (CLEAR); BILIRUBIN NEGATIVE (NEGATIVE); COLOR YELLOW (YELLOW); GLUCOSE NEGATIVE (NEGATIVE); KETONE NEGATIVE (NEGATIVE); NITRITE NEGATIVE (NEGATIVE); PROTEIN NEGATIVE (NEGATIVE); UROBILINOGEN NORMAL (NORMAL)
[2019-04-12 07:39] LABS: BACTERIA MODERATE /hpf (NONE SEEN)
--- NOTE | 2019-04-12 08:16 | NUR ---
0700 SITTER REMAINS AT BEDSIDE PERFORMING Q 15 MIN BEHAVIORAL CHECKS VOIDED ON BEDPAN ASSESSMENT COMPLETE
[2019-04-12 09:47] LABS: BASOPHILS 0.1 % (0-2); EOSINOPHILS 0 % (0-7); HEMATOCRIT 28.9 % (42.0-54.0); HEMOGLOBIN 9.2 g/dL (13.5-17.5); IMMATURE GRANULOCYTES 0.3 % (0-5); LYMPHOCYTES 2.4 % (15-50); MCH 23.9 pg (26.0-34.0); MCHC 31.8 g/dL (31.0-37.0); MCV 75.1 fL (80.0-100.0); MEAN PLATELET VOLUME 8.6 fL (7.4-10.4); MONOCYTES 6.2 % (2-11); PLATELET COUNT 252 10x3/uL (130-400); RBC 3.85 10x6/uL (4.20-6.10); RDW 24.7 % (11.5-14.5)
[2019-04-12 10:14] LABS: BASOPHILS 0.1 % (0-2); EOSINOPHILS 0 % (0-7); HEMATOCRIT 28.5 % (42.0-54.0); HEMOGLOBIN 9.2 g/dL (13.5-17.5); IMMATURE GRANULOCYTES 0.2 % (0-5); LYMPHOCYTES 1.6 % (15-50); MCH 24.2 pg (26.0-34.0); MCHC 32.3 g/dL (31.0-37.0); MONOCYTES 4.4 % (2-11); NEUTROPHILS 93.7 % (40-80); PLATELET COUNT 301 10x3/uL (130-400); RDW 24.5 % (11.5-14.5); WBC 10.9 10x3/uL (4.8-10.8)
--- NOTE | 2019-04-12 18:12 | NUR ---
1100 PREOP CALLED AND GIVEN
--- NOTE | 2019-04-12 18:12 | NUR ---
0900 REMAINS NPO FOR FLEX SIG PER DR VELEZ
--- NOTE | 2019-04-12 18:13 | NUR ---
1400 GI STAFF PRESENT SETTING UP FOR PROCEEDURE
--- NOTE | 2019-04-12 18:16 | NUR ---
1414 FLEX SIG COMPLETE FREQOUOENT VS INITIATED
--- NOTE | 2019-04-12 18:16 | NUR ---
1600 REMAINS SLEEPY IN BED AWAKENS TO VOICE
--- NOTE | 2019-04-12 18:17 | NUR ---
1800 PULLED IV OUT
--- NOTE | 2019-04-12 18:41 | MORECARE ---
CASE MANAGEMENT DISCHARGE SUMMARY PATIENT: TERESO VILLARREAL UNIT: [id number] ADM DATE: 04/10/19 AGE: 69 : 50 SEX: M ROOM/BED: D.2311 AUTHOR: CELESTINO NEWSOME PHYSICIAN: REFERRING PHYSICIAN: FREEDOM CONTRERAS MD DATE OF SERVICE: 04/12/19 Discharge Plan Patient Name: TERESO [facility]ILLARREAL [facility] [facility] 1950 Planned Disposition: Home Anticipated Discharge Date: Discharge Date: Expected LOS: Initial Reviewer: [email or web address] Initial Review Date: 04/12/2019 Generated: 04/12/19 7:41 pm DCPIA - Discharge Planning Initial Assessment Updated by [email or web address]: Terrie Oreilly on 04/12/19 6:41 pm * Is the patient Alert and Oriented? Yes * How many steps to enter\exit or inside your home? * PCP Marv * [facility] * Preadmission Environment Home Alone * ADLs Independent * Equipment Walker Wheelchair * List name and contact numbers for known caregivers / representatives who currently or will assist patient after discharge: EKTA AGUDELO- [phone] * Verbal permission to speak to the caregivers and representatives has been obtained from the patient. Yes * Community resources currently utilized None * Additional services required to return to the preadmission environment? No * Can the patient safely return to the preadmission environment? Yes * Has this patient been hospitalized within the prior 30 days at any hospital? Yes Patient Name: TERESO VILLARREAL Page [id number] at 1841 All edits/amendments must be made on the electronic document DICTATION DATE: 04/12/191840 BROOM HANDLE DIPPER: ROB 04/12/191840 RPT#: [id number] DC DATE: STATUS: ADM IN [facility] [address] [place] [address] END OF REPORT
--- NOTE | 2019-04-12 19:52 | NUR ---
REPORT RECEIVED. PT SITTING UP IN BED WITH EYES OPEN, RR EVEN AND UNLABORED. BED IN LOW POSITION. NO S/S OF DISTRESS NOTED. PIV RESITED IN RFA. DATED PER POLICY. INTRODUCED SELF TO PT. PT REQUESTS ANALGESIC FOR PAIN IN LOWER BACK, PT STATES PAIN OF A 9 ON A SCALE OF 0-10. ADMINISTERED ORDERED ANALGESIC. PT DENIES FURTHER NEEDS AT THIS TIME. CALL LIGHT IN REACH. VITALS STABLE. WILL CTM.
--- NOTE | 2019-04-12 22:02 | NUR ---
PT SITTING UP IN BED WITH EYES OPEN, RR EVEN AND UNLABORED. 250 BLOOD SUAGR TREATED ORDERED PER SLIDING SCALE. NO S/S OF DISTRESS NOTED. CALL LIGHT IN REACH. WILL CTM.
--- NOTE | 2019-04-12 22:57 | NUR ---
PT PROVIDED LINEN AND GOWN CHANGE, CHG BATH PROVIDED. BED ALARM SET TO ON. DENIES FURTHER NEEDS AT THIS TIME. WILL CTM.
[2019-04-13] VITALS (16 sets, daily range): BP systolic 98–158; BP diastolic 50–109
--- NOTE | 2019-04-13 01:00 | NUR ---
PT LYING IN BED WITH EYES CLOSED, RR EVEN AND UNLABORED. NO S/S OF DISTRESS NOTED. CALL LIGHT IN REACH. WILL CTM.
--- NOTE | 2019-04-13 01:20 | NUR ---
PT RESTING IN BED WITH EYES CLOSED, VSS, CONT TO MONITOR.
--- NOTE | 2019-04-13 03:00 | NUR ---
PT LYING ON BACK IN BED WITH EYES OPEN, RR EVEN AND UNLABORED. NO S/S OF DISTRESS NOTED. BED IN LOW POSITION. CALL LIGHT IN REACH. SIDE RAILS UP X2. WILL CTM.
[2019-04-13 03:40] LABS: ALBUMIN 2.7 g/dL (3.4-5.0); ANION GAP 15.2 mmol/L (8-16); BILIRUBIN - TOTAL 0.88 mg/dL (0.2-1.3); CALCIUM 9.2 mg/dL (8.5-10.1); POTASSIUM - SERUM 4.2 mmol/L (3.5-5.1); PROTEIN - SERUM 7.4 g/dL (6.4-8.2)
--- NOTE | 2019-04-13 05:21 | NUR ---
PT LYING ON BACK IN BED WITH EYES CLOSED, RR EVEN AND UNLABORED. NO S/S OF DISTRESS NOTED. PROTONIX INFUSING ORDERED THROUGH RFA PIV. BED IN LOW POSITION. CALL LIGHT IN REACH. WILL CTM.
--- NOTE | 2019-04-13 08:22 | NUR ---
SITTING UP ON SIDE OF BED EATING BREAKFAST AT THIS TIME. NO ACUTE DISTRESS NOTED. WILL CONTINUE PLAN OF CARE.
--- NOTE | 2019-04-13 10:11 | NUR ---
RT LEG NOTED TO HAVE OPEN SORES WHICH HAVE REDNESS AND DRAINAGE (SEROUS DRAINAGE) WHICH HAS SATURATED ON TO LINENS. CULTURES OBTAINED FROM OPEN SORES, THEN AREA CLEANED WITH WOUND JOB COUNSELOR, 4X4 GAUZE, ABD PAD, AND CURLEX DRESSINGS APPLIED OVER AREA. WILL PLACE ORDER FOR WOUND CONSULT TO FURTHER ASSESS WOUND SITE. WILL CONTINUE PLAN OF CARE.
--- NOTE | 2019-04-13 12:11 | NUR ---
CHG BATH GIVEN. TOTAL LINEN CHANGE AND SARAHI CARE PROVIDED. WILL CONTINUE PLAN OF CARE.
--- NOTE | 2019-04-13 14:02 | NUR ---
UP IN BED AWAKE AT THIS TIME. NO ACUTE DISTRESS NOTED. VSS. WILL CONTINUE PLAN OF CARE.
--- NOTE | 2019-04-13 16:01 | NUR ---
LYING IN BED RESTING AT THIS TIME. RESPIRATIONS STEADY AND UNLABORED. NO ACUTE DISTRESS NOTED. AWAKENS EASILY WHEN SPOKEN TO. WILL CONTINUE PLAN OF CARE.
--- NOTE | 2019-04-13 16:51 | NUR ---
RECEIVED REPORT FROM ISABEL IN ICU. PATIENT TO UNIT SOON.
--- NOTE | 2019-04-13 17:22 | NUR ---
PT TRANSFERRED TO ROOM 2112 AT THIS TIME WITH ALL PERSONAL ITEMS. NO ACUTE DISTRESS NOTED. REPORT CALLED TO RECIEVING NURSE BEFORE TRANSFERRING PT. TRANSFERRED VIA BED ACCOMPANIED BY HOSPITAL STAFF. NO ACUTE DISTRESS NOTED. NO FURTHER ACTIONS.
--- NOTE | 2019-04-13 17:31 | NUR ---
RECEIVED PATIENT VIA BED FROM ICU. PATIENT ADMITTED TO ROOM 2111. PATIENT ALERT/ORIENTED TO SURROUNDINGS. CALL LIGHT WITHIN REACH. SR UP FOR SAFETY. MILK PROVIDED UPON REQUEST. PATIENT REFUSING PM MEAL. PER ICU NURSE FSBS 157, PATIENT REFUSING TO EAT, NO INSULIN ADMINISTERED. PATIENT IN NO DISTRESS. VS: 139/86, 98.2, 94, 20, 100% RA
--- NOTE | 2019-04-13 18:15 | NUR ---
RESTING IN BED WITH EYES CLOSED. RESP EVEN AND UNLABORED. NO DISTRESS. CALL LIGHT WITHIN REACH.
--- NOTE | 2019-04-13 19:30 | NUR ---
REPORT RECIEVED AND ROUNDING COMPLETE. PT IS LAYING IN BED, PATIENT HAS NO S/SX OF DISTRESS AT THIS TIME. PATIENT HAS A RIGHT PIV WITH PROTONIX RUNNING AT 10ML/HR. PATIENT PIV HAS NO S/SX OF INFILTRATION OR INFECTION. PATIENT'S BREATHING IS EVEN AND UNLANBORED. PATIENT STATES HE HAS NO NEEDS AT THIS TIME. CALL LIGHT WITHIN REACH AND BED IN LOWEST POSITION AND LOCKED.
[2019-04-14 02:27] LABS: BASOPHILS 0.1 % (0-2); EOSINOPHILS 0.1 % (0-7); HEMATOCRIT 21.8 % (42.0-54.0); HEMOGLOBIN 6.8 g/dL (13.5-17.5); IMMATURE GRANULOCYTES 0.3 % (0-5); LYMPHOCYTES 2.6 % (15-50); MCH 23.9 pg (26.0-34.0); MCHC 31.2 g/dL (31.0-37.0); MCV 76.8 fL (80.0-100.0); MEAN PLATELET VOLUME 8.7 fL (7.4-10.4); MONOCYTES 8.6 % (2-11); NEUTROPHILS 88.3 % (40-80); PLATELET COUNT 273 10x3/uL (130-400); RBC 2.84 10x6/uL (4.20-6.10); RDW 24.9 % (11.5-14.5); WBC 13.7 10x3/uL (4.8-10.8)
[2019-04-14 02:32] LABS: INR 1.6 (0.85-1.17); PROTIME 18.5 SECONDS (11.6-15.0)
[2019-04-14 02:47] LABS: ANION GAP 13.4 mmol/L (8-16); BILIRUBIN - TOTAL 0.75 mg/dL (0.2-1.3); CALCIUM 8.4 mg/dL (8.5-10.1); CARBON DIOXIDE 24.6 mmol/L (21.0-32.0); CREATININE - SERUM 2.8 mg/dL (0.6-1.3); PROTEIN - SERUM 5.7 g/dL (6.4-8.2)
[2019-04-14 03:55] VITALS: BP 109/59
--- NOTE | 2019-04-14 04:07 | NUR ---
0205- WENT INTO PATIENTS ROOM TO HANG PROTONIX PATIENT WAS SITTING ON THE SIDE OF HIS BED. NOTICE THERE WAS WHAT APPEARED TO BE STOOL POOLING AROUND PATIENTS BUTTOCK. THEN NOTICE THAT THE OUTER RIM WAS RED. ASKED DONAL KEY TO COME AND LOOK AT SAID BLOODY STOOL. DONAL AGREED WITH ME AND THEN WE ASKED JACE ZAYAS. SHE SAID TO CALL [facility] AND ASK WHAT WE SHOULD DO. 0215- SPOKE WITH [facility] AND EXPLAINED THAT PATIENT WAS THOUGHT TO BE HAVING GI BLLED WITH LARGE BLOOD CLOTS ALSO THAT HIS BLOOD PRESSURE WAS LOW. TANNER ADVISED TO CALL A RAPID REPOSNSE. 0220- CALLED RAPID RESPONSE. 0222 SHAWNEE FROM ICU RESPONDED TO THE RAPID RESPONSE, AGREED GI BLEED BUT THOUGHT IT WAS OLD BLLOD. SHAWNEE THEN CALLED DR. CONTRERAS THAT STATED TO GIVE PATIENT AN UNIT OF BLOOD AND TO KEEP A CLOSE EYE ON HIM. 0240- ANOTHER DARK RED BOWEL MOVEMENT, ASSISTED CHIN STRAP SEWER IN CLEANING UP PATIENT 0300- SHAWNEE ZAYAS FROM ICU STARTED SECOND IV IN RIGHT AC FOR PROTONIX DRIP. 0315- SHAWNEE ZAYAS FROM ICU HUNG UNIT OF BLOOD. 0340- ANOTHER DARK RED BOWL MOVEMENT NO CLOTS NOTED. ASSISTED CHIN STRAP SEWER IN CLEANING UP PATIENT. PATIENT LAYING IN BED IN SUPINE POSITION, CALL LIGHT WITHIN REACH AND BED IN LOWEST POSITION AND LOCKED.
--- NOTE | 2019-04-14 05:22 | NUR ---
SPOKE WITH DR. CONTRERAS TO GIVE HIM UPDATE ON PATIENT, INFORMED HIM THAT SINCE THE LAST TIME WE SPOKE PATIENT HAS HAD 5 MORE BOWEL MOVEMENTS OF DARK RED STOOL AND HAVE NOT HAD A BP HIGHER THEN 107/61. DR. CONTRERAS ADVISED TO SEND PATIENT BACK TO UNIT AND GIVE HIM TWO MORE UNITS OF BLOOD. LET JACE DE DIOS RN KNOW AND SHE STATED SHE WILL CALL [facility]. WILL FOLLOW THROUGH WITH ORDERS.
--- NOTE | 2019-04-14 05:41 | NUR ---
CHECKED ON PATIENT. HE IS SOILED, THIS TIME THE STOOL IS NO A DARK RED IT IS GETTING A LITTLE BRIGHTER AND PLATE INSPECTOR RED. PATIENT IS TO TRANSFER TO ICU.
--- NOTE | 2019-04-14 05:56 | NUR ---
REPORT CALLED TO LUX ZAYAS IN ICU. WILL TRANSFER PT AFTER HE IS CLEANED UP.
[2019-04-14 06:00] VITALS: BP 125/71
--- NOTE | 2019-04-14 06:00 | NUR ---
PT REC'D TO ROOM 2310 ALL MONITORS ESTABLISHED, PT AWAKENS EASILY TO VERBAL STIMULI, ORIENTED X 3, RIGHT FOREARM PIV WITH PRBC INFUSING, RIGHT A/C WITH PROTONIX @ 10CC/HR, PT ON ROOM AIR, PULSE OX 97%, BP STABLE, LEFT BKA NOTED, BED IN LOW POSITION, CALL LIGHT IN REACH.
[2019-04-14 07:00] VITALS: BP 117/92
[2019-04-14 08:00] VITALS: BP 124/81
--- NOTE | 2019-04-14 08:00 | NUR ---
REPORT GIVEN TO ONCOMING SHIFT, PT RESTING IN BED, EYES CLOSED, RESP EVEN AND UNLABORED, VSS.
--- NOTE | 2019-04-14 08:30 | NUR ---
PT UP IN BED AWAKE AT THIS TIME. DENIES ANY NEEDS. PT UP IN BED EATING BREAKFAST. NO ACUTE DISTRESS NOTED. VSS. CALL LIGHT IN REACH. BED ALARM ON. BED IN LOWEST POSITION. PERSONAL ITEMS IN REACH. WILL CONTINUE PLAN OF CARE.
[2019-04-14 09:00] VITALS: BP 122/72
--- NOTE | 2019-04-14 11:50 | NUR ---
0912: PT BECAME BRADYCARDIC WITH A RATE OF 22, PT UNRESPONSIVE, CODE BLUE CALLED. SEE CODE BLUE SHEET FOR FURTHER INFORMATION. ALSO PTS DAUGHTER UPDATED OF STATUS, SHE STATED TO KEEP FULL CODE STATUS AND THAT SHE WAS ON HER WAY UP HERE. 1024: END OF THIRD CODE BLUE REGARDING PT, PT PROUNCED BY DR CONTRERAS. RECORD OF SIGNED BY DR CONTRERAS, PTS DAUGHTER, EKTA STEVE TOOK PTS CELL PHONE AND [facility] WITH HER. WILL SEND PROSTHETIC LEG AND DENTURES WITH HOME OF CHOICE. PTS DAUGHTER SELECTED [facility]. FAMILY SIGNED FORM TO RELEASE BODY TO [facility]. PT DOES NOT MEET CRITERIA FOR COUNTRY MANAGER TO BE NOTIFIED. 1040: URSULA NOTIFIED; STATED PT DOES NOT MEET CRITERIA BECAUSE OF BLOOD AND URINE CULTURES CONTAINING YEAST; SPOKE WITH TONYA HASSAN; REFERENCE NUMBER IS [id number]. 1100: POSTMORTUM CARE PROVIDED. PT BATHED AND TOTAL LINEN CHANGE PROVIDED. IVS TO RT FOREARM AND AC REMOVED, CATHETER TIP INTACT. 1143: SPOKE WITH [facility]; SPOKE WITH TANVIR KERN; STATED WILL BE BY SHORTLY TO PICK PT UP.
--- NOTE | 2019-04-14 12:26 | NUR ---
BODY HAS BEEN PICKED UP BY [facility] BY TANVIR [facility]. FORM HAS BEEN SIGNED BY HOME REPRESENTITIVE. PROSTHETIC LEG AND DENTURES TAKEN WITH BODY. NO FURTHER ACTIONS.
--- NOTE | 2019-04-15 09:44 | MORECARE ---
CASE MANAGEMENT DISCHARGE SUMMARY PATIENT: TERESO VILLARREAL UNIT: [id number] ADM DATE: 04/10/19 AGE: 69 : 50 SEX: M ROOM/BED: D.2310 AUTHOR: CELESTINO NEWSOME PHYSICIAN: REFERRING PHYSICIAN: FREEDOM CONTRERAS MD DATE OF SERVICE: 04/15/19 Discharge Plan Patient Name: TERESO VILLARREAL [facility] [facility] 1950 Planned Disposition: Home Anticipated Discharge Date: Discharge Date: 04/14/2019 Expected LOS: Initial Reviewer: [email or web address] Initial Review Date: 04/12/2019 Generated: 04/15/19 10:44 am DCPIA - Discharge Planning Initial Assessment Updated by [email or web address]: Terrie Oreilly on 04/12/19 6:41 pm * Is the patient Alert and Oriented? Yes * How many steps to enter\exit or inside your home? * PCP Marv * [facility] * Preadmission Environment Home Alone * ADLs Independent * Equipment Walker Wheelchair * List name and contact numbers for known caregivers / representatives who currently or will assist patient after discharge: EKTA AGUDELO- [phone] * Verbal permission to speak to the caregivers and representatives has been obtained from the patient. Yes * Community resources currently utilized None * Additional services required to return to the preadmission environment? No * Can the patient safely return to the preadmission environment? Yes * Has this patient been hospitalized within the prior 30 days at any hospital? Yes Last DP export: 04/12/19 5:41 p Patient Name: TERESO VILLARREAL Page [id number] at 0944 All edits/amendments must be made on the electronic document DICTATION DATE: 04/15/19943 TORCH STRAIGHTENER AND HEATER: ROB 04/15/19943 RPT#: [id number] DC DATE:04/14/19 STATUS: DIS IN [facility] [address] [place] [address] END OF REPORT
== END 2019-04-14 12:30 | DRG 377 ==
LOC: D.ER 22:25 → D.ICU 22:47 → D.M2 04-13 17:24 → D.ICU 04-14 06:03
PROVIDERS: Emergency Medicine; Internal Medicine Gastroenterology; ADMIT Internal Medicine Nephrology; ATTEND Internal Medicine Nephrology
PROC: 0DJD8ZZ Inspection of Lower Intestinal Tract, Via Natural or Artificial Opening Endoscopic (ICD-10-PCS; principal; 2019-04-12 13:45)
PROC: 5A1935Z Respiratory Ventilation, Less than 24 Consecutive Hours (ICD-10-PCS; 2019-04-14)
PROC: 0BH17EZ Insertion of Endotracheal Airway into Trachea, Via Natural or Artificial Opening (ICD-10-PCS; 2019-04-14)
DX: K92.2 Gastrointestinal hemorrhage, unspecified (principal); J96.01 Acute respiratory failure with hypoxia; D62 Acute posthemorrhagic anemia; I13.0 Hypertensive heart and chronic kidney disease with heart failure and stage 1 through stage 4 chronic kidney disease, or unspecified chronic kidney disease; J90 Pleural effusion, not elsewhere classified; E44.0 Moderate protein-calorie malnutrition; L03.115 Cellulitis of right lower limb; N39.0 Urinary tract infection, site not specified; I47.2 Ventricular tachycardia; D50.9 Iron deficiency anemia, unspecified; E11.22 Type 2 diabetes mellitus with diabetic chronic kidney disease; N18.9 Chronic kidney disease, unspecified; I50.9 Heart failure, unspecified; I71.4 Abdominal aortic aneurysm, without rupture; I73.9 Peripheral vascular disease, unspecified; K59.09 Other constipation; E11.40 Type 2 diabetes mellitus with diabetic neuropathy, unspecified; I25.5 Ischemic cardiomyopathy; I83.019 Varicose veins of right lower extremity with ulcer of unspecified site; R40.2364 Coma scale, best motor response, obeys commands, 24 hours or more after hospital admission; R40.2134 Coma scale, eyes open, to sound, 24 hours or more after hospital admission; R40.2244 Coma scale, best verbal response, confused conversation, 24 hours or more after hospital admission; I46.9 Cardiac arrest, cause unspecified